=== PATIENT | female | born 1975 | race Caucasian/White ===

== ENCOUNTER → 2016-09-13 | Outpatient (CLI) | payer MEDICAID ==
[~2016-09-13] MED LIST: ACET325T38 PO; ACHD5005 PO; ALBU8.5H2 IH; ASPI-9 PO; CYCL10TA9 PO; DESV50TA PO; DOXY100T2 PO; GEMF600T3; HCT25T PO; HYDR-34 PO; HYDR-3812 PO; HYDR-756 PO; IBUP-15 PO; INHA1INH8 MC; LISI-552 PO; LISI1TAB6; METH4TAB PO; MTP25TSR PO; OMEG500C PO; OMEP20CA12 PO; PNT40TEC PO; PRD20T PO; PRED20TA PO; SCR1T1 PO; SULF-109 PO; TRAM-42 PO; TRAM50TA2 PO; TRM50T PO; [UNRECOGNIZED DRUG - OTHER]
--- OUTSIDE RECORDS SUMMARY | 2016-09-13 13:13 | XMS REPORT | Continuity of Care Document ---
Author Author [facility] Organization [facility] Address Unknown Phone Unavailable Support Name Relationship Address Phone ROLANDANTONIO DO Caregiver [facility] [address] MARTINEZ VALERA Next Of Kin [address] [place] [address] Insurance Providers Payer Name Policy Number Subscriber Name Relationship Enter Insurance Name [id number] Belen Valera 19 Self / Same As Patient Advance Directives Directive Response Recorded Date/Time Advance Directives No 03/25/14 8:47am Resuscitation Status Full Code 03/25/14 8:47am Problems Medical Problems Problem Onset Date Status Epigastric pain Unknown Active Epigastric pain Unknown Active Medications Medication Dose Route Sig Days/Qty Instructions Order Date Discontinued Date Status HCTZ/Lisinopril (Zestoretic) 03/17/09 02/19/10 Discontinued Gemfibrozil (Lopid) 08/21/09 02/19/10 Discontinued Prednisone 3 Tab PO DAILY 11 Qty 3 TABS DAY ONE, TAPER BY 1/2 TAB DAILY TILL GONE 08/21/09 02/19/10 Discontinued Doxycycline Hyclate 1 Each PO TWICE A DAY 20 Qty 08/21/09 02/19/10 Discontinued Doxycycline Hyclate 1 Each PO TWICE A DAY 20 Qty 08/21/09 02/19/10 Discontinued Albuterol 8.5 Gm IH EVERY 4HRS 1 Qty 08/21/09 02/19/10 Discontinued Tramadol HCl 50 - 100 Mg PO FOUR TIMES DAILY 20 Qty PRN PAIN 08/21/09 Discontinued Cyclobenzaprine HCl (Flexeril) 10 Mg PO EVERY 8HRS 05/16/10 Discontinued Desvenlafaxine Succinate 50 Mg PO DAILY 05/16/10 12/01/10 Discontinued Acetaminophen/Hydrocodone Bitart 1 Tab PO EVERY 4HRS 14 Qty 05/16/10 12/01/10 Discontinued Methylprednisolone 0 PO DIRECTED 1 Qty 05/16/10 12/01/10 Discontinued Sulfamethoxazole/Trimethoprim 1 Tab PO TWICE A DAY 14 Days 05/26/10 Discontinued Acetaminophen/Hydrocodone Bitart 1 - 2 Each PO EVERY 6 HOURS PRN 10 Qty 12/01/10 03/25/14 Discontinued Hydrochlorothiazide 25 Mg PO DAILY 03/25/14 Active Sucralfate 1 Gm PO FOUR TIMES DAILY 120 Qty 03/25/14 Active Pantoprazole Sodium 1 Tab PO DAILY 30 Qty 03/25/14 Active Social History Social History Problem Response Recorded Date/Time Alcohol Use Denies Use 03/25/2014 8:47am Recreational Drug Use No 03/25/2014 8:47am Smoking Status Current Everyday Smoker 03/25/2014 8:47am Query Response Start Date Stop Date Smoking Status Current Everyday Smoker Hospital Discharge Instructions No hospital discharge instructions. Plan of Care No plan of care. Functional Status No functional status results. Allergies, Adverse Reactions, Alerts Allergen Type Severity Reaction Status Last Updated No Known Drug Allergies Active 03/17/09 Immunizations No immunization records. Vital Signs Acute Vital Signs Vital Response Date/Time Pulse Rate (adult) 76 bpm (60 - 90) Respiratory Rate 18 bpm (12 - 24) O2 Sat by Pulse Oximetry 96 % (88 - 100) Blood Pressure 138/81 mm Hg Pain Pain Intensity 8 Height (Feet) 5 feet Height (Inches) 6 inches Height (Calculated Centimeters) 167.182199 cm Weight (Pounds) 240 pounds Weight (Calculated Kilograms) 108.553542 kilograms Calculated BMI 38.73 Results Test Source Date Result Interp. Ref. 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 [employer] Alanine Aminotransferase (ALT/SGPT) January 05, 2010 12:16pm 50 U/L N 30- 65 Comments to Lands Resource Manager: PT [employer] Albumin January 05, 2010 12:16pm 3.6 G/DL N 3.4-5.0 Comments to Lands Resource Manager: PT [employer] Alkaline Phosphatase January 05, 2010 12:16pm 107 U/L N 50-136 Comments to Lands Resource Manager: PT [employer] Aspartate Amino Transf (AST/SGOT) January 05, 2010 12:16pm 29 U/L N 15-37 Comments to Lands Resource Manager: PT [employer] BUN/Creatinine Ratio May 26, 2010 12:10am 12 - Band Neutrophils May 26, 2010 12:10am 0 % - Basophils # (Auto) May 26, 2010 12:10am 0.0 10^3/uL N 0.0-0.1 Basophils % (Manual) May 26, 2010 12:10am 0 % - Basophils (%) (Auto) May 26, 2010 12:10am 0 % N 0-10 Blood Urea Nitrogen May 26, 2010 12:10am 12 MG/DL N 7-18 Calcium Level May 26, 2010 12:10am 8.7 MG/DL N 8.5-10.1 Carbon Dioxide Level May 26, 2010 12:10am 25 MMOL/L N 21-32 Chloride Level May 26, 2010 12:10am 100 MMOL/L L 101-110 Cholesterol Level January 05, 2010 12:16pm 171 MG/DL N -200 Comments to Lands Resource Manager: PT [employer] Creatinine May 26, 2010 12:10am 1.0 MG/DL N 0.6-1.3 D-Dimer March 17, 2009 7:30pm 1.06 UG/ML H 0.00-0.49 Eosinophils # (Auto) May 26, 2010 12:10am 0.2 10^3/uL N 0.0-0.3 Eosinophils % (Manual) May 26, 2010 12:10am 1 % - Eosinophils (%) (Auto) May 26, 2010 12:10am 1 % N 0-10 Glucose Level May 26, 2010 12:10am 92 MG/DL N 70-126 HDL Cholesterol January 05, 2010 12:16pm 31 MG/DL L 35-60 Comments to Lands Resource Manager: PT [employer] Hematocrit May 26, 2010 12:10am 44 % N 35-52 Hemoglobin May 26, 2010 12:10am 15.1 G/DL N 11.5-16.0 LDL Cholesterol January 05, 2010 12:16pm 96 MG/DL N 0-129 Comments to Lands Resource Manager: PT [employer] Lymphocytes # (Auto) May 26, 2010 12:10am 5.5 X 10^3 H 1.0-4.0 Lymphocytes % (Manual) May 26, 2010 12:10am 32 % - Lymphocytes (%) (Auto) May 26, 2010 12:10am 39 % N 12-44 Mean Corpuscular Hemoglobin May 26, 2010 12:10am 30 PG N 25-34 Mean Corpuscular Hemoglobin Concent May 26, 2010 12:10am 35 G/DL N 32-36 Mean Corpuscular Volume May 26, 2010 12:10am 86 FL N 80-99 Mean Platelet Volume May 26, 2010 12:10am 11.0 FL H 7.4-10.4 Monocytes # (Auto) May 26, 2010 12:10am 0.9 X 10^3 N 0.0-1.0 Monocytes % (Manual) May 26, 2010 12:10am 8 % - Monocytes (%) (Auto) May 26, 2010 12:10am 7 % N 0-12 Neutrophils # (Auto) May 26, 2010 12:10am 7.4 X 10^3 N 1.8-7.8 Neutrophils % (Manual) May 26, 2010 12:10am 59 % - Neutrophils (%) (Auto) May 26, 2010 12:10am 53 % N 42-75 Platelet Count May 26, 2010 12:10am 263 10^3/uL N 130-400 Potassium Level May 26, 2010 12:10am 3.7 MMOL/L N 3.6-5.0 Prothromb Time International Ratio January 05, 2010 12:16pm 0.9 N 0.8-1.4 INTERPRETIVE DATASUGGESTED THERAPEUTIC RANGE FOR INR'S: VENOUS THROMBOSIS, PULMONARY EMBOLISM, OR PREVENTION OF SYSTEMIC EMBOLISM (EG. IN ATRIAL FIBRILLATION): 2.0 - 3.0 MECHANICAL PROSTHETIC HEART VALVES: 2.5 - 3.5* *NOTE: INR'S UP TO 4.5 MAY BE NECESSARY IN SELECTED GROUPS OF HIGH RISK PATIENTS. [employer] CONSENSUS CONFERENCE ON ANTITHROMBOTIC THERAPY (2000). Prothrombin Time January 05, 2010 12:16pm 12.4 SEC N 12.2-14.7 Comments to Lands Resource Manager: PT [employer] Red Blood Count May 26, 2010 12:10am 5.12 10^6/uL N 4.35-5.85 Red Cell Distribution Width May 26, 2010 12:10am 13.9 % N 10.0-14.5 Sodium Level May 26, 2010 12:10am 134 MMOL/L L 135-145 Thyroid Stimulating Hormone (TSH) February 22, 2010 12:45am 0.88 UIU/ML N 0.34-5.60 Total Bilirubin January 05, 2010 12:16pm 0.2 MG/DL N 0.0-1.0 Comments to Lands Resource Manager: PT [employer] Total Protein January 05, 2010 12:16pm 7.5 G/DL N 6.4-8.2 Comments to Lands Resource Manager: PT [employer] Triglycerides Level January 05, 2010 12:16pm 218 MG/DL H 30.0-150.0 Comments to Lands Resource Manager: PT [employer] Urine Bacteria February 22, 2010 1:40am NEGATIVE - Has specimen been collected/obtained? YSpecimen Description CLEAN CATCH Urine Bilirubin February 22, 2010 1:40am NEGATIVE - Has specimen been collected/obtained? YSpecimen Description CLEAN CATCH Urine Casts February 22, 2010 1:40am NONE - Has specimen been collected/ obtained? YSpecimen Description CLEAN CATCH Urine Clarity February 22, 2010 1:40am CLEAR - Has specimen been collected/obtained? YSpecimen Description CLEAN CATCH Urine Color February 22, 2010 1:40am YELLOW - Has specimen been collected /obtained? YSpecimen Description CLEAN CATCH Urine Crystals February 22, 2010 1:40am NONE - Has specimen been collected/obtained? YSpecimen Description CLEAN CATCH Urine Culture Indicated February 22, 2010 1:40am NO - Has specimen been collected/obtained? YSpecimen Description CLEAN CATCH Urine Glucose (UA) February 22, 2010 1:40am NEGATIVE - Has specimen been collected/obtained? YSpecimen Description CLEAN CATCH Urine Ketones February 22, 2010 1:40am NEGATIVE - Has specimen been collected/obtained? YSpecimen Description CLEAN CATCH Urine Leukocyte Esterase February 22, 2010 1:40am NEGATIVE - Has specimen been collected/obtained? YSpecimen Description CLEAN CATCH Urine Mucus February 22, 2010 1:40am NEGATIVE - Has specimen been collected/obtained? YSpecimen Description CLEAN CATCH Urine Nitrite February 22, 2010 1:40am NEGATIVE - Has specimen been collected/obtained? YSpecimen Description CLEAN CATCH Urine Protein February 22, 2010 1:40am NEGATIVE - Has specimen been collected/obtained? YSpecimen Description CLEAN CATCH Urine RBC February 22, 2010 1:40am NONE /HPF - Has specimen been collected/obtained? YSpecimen Description CLEAN CATCH Urine Specific Dequincy February 22, 2010 1:40am 1.020 - Has specimen been collected/obtained? YSpecimen Description CLEAN CATCH Urine Squamous Epithelial Cells February 22, 2010 1:40am 25-50 H - Has specimen been collected/obtained? YSpecimen Description CLEAN CATCH Urine Urobilinogen February 22, 2010 1:40am NORMAL MG/DL - Has specimen been collected/obtained? YSpecimen Description CLEAN CATCH Urine WBC February 22, 2010 1:40am NONE /HPF - Has specimen been collected/obtained? YSpecimen Description CLEAN CATCH Urine pH February 22, 2010 1:40am 6.5 - Has specimen been collected/ obtained? YSpecimen Description CLEAN CATCH VLDL Cholesterol January 05, 2010 12:16pm 44 MG/DL H 5-40 Comments to Lands Resource Manager: PT [employer] White Blood Count May 26, 2010 12:10am 14.1 10^3/uL H 4.3-11.0 Estimat Glomerular Filtration Rate May 26, 2010 12:10am > 60 - GFR INTERPRETIVE DATA UNITS FOR ESTIMATED GFR (eGFR): mL/min/1.73 M2 REFERENCE RANGE FOR ESTIMATED GFR (eGFR) eGFR NORMAL eGFR >60 MODERATELY DECREASED eGFR 30-59 SEVERLY DECREASED eGFR 15-29 KIDNEY FAILURE <15 (OR DIALYSIS) Blood Morphology Comment May 26, 2010 12:10am NORMAL - Urine RBC (Auto) February 22, 2010 1:40am NEGATIVE - Has specimen been collected/obtained? YSpecimen Description CLEAN CATCH MRSA Screen Nasal January 05, 2010 12:18pm MRSA not isolated Procedures Procedure Status Date Provider(s) Tracing only of electrocardiogram completed 03/25/14 ANTONIO WATKINS DO Encounters Encounter Location Date/Time Registered Emergency Room [facility] 03/25/14 8:24am Recent Diagnosis
--- NOTE | 2016-09-13 13:48 | Diagnostic Imaging Report ---
PA and lateral views of the chest Indication: Cough Findings: The lungs are clear. The heart size is normal. There is no effusion or pneumothorax The mediastinum and rey appear unremarkable. Impression: Unremarkable study. Dictated by: Dictated on workstation # [id number]
== END ==
LOC: RAD 13:09
PROVIDERS: ATTEND Nurse Practitioner Family
DX: J40 Bronchitis, not specified as acute or chronic (principal); E66.9 Obesity, unspecified; R06.02 Shortness of breath; G47.33 Obstructive sleep apnea (adult) (pediatric); R00.2 Palpitations; Z72.0 Tobacco use
CPT/HCPCS: 71020

== ENCOUNTER 2017-07-02 09:40 | Emergency (ER) | payer MEDICAID ==
[~2017-07-02] VITALS: Ht 167.6 cm; Wt 72.6 kg
[2017-07-02] MEDS ORDERED: TETANUS,DIPTH,PERTUSS P/F (BOOSTRIX) 0.5 ML VIAL IM STA (09:53)
[2017-07-02] MEDS ORDERED: IBUPROFEN 800 MG (MOTRIN) TAB PO STA (09:53)
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
--- NOTE | 2017-07-02 10:19 | Diagnostic Imaging Report ---
INDICATION: Tripped and fell, swelling and pain. EXAMINATION: Right forearm 07/02/2017. FINDINGS: 2 views of the forearm. There is no joint effusion. Tiny density along the intra-aspect of the elbow is likely a spur with tiny fracture fragment difficult to exclude but felt to be less likely given the lack of effusion. The remaining forearm is unremarkable. At the wrist old fractures are seen. IMPRESSION: 1. Tiny density in the intra-aspect of the elbow most likely a chronic finding less likely a tiny avulsion fracture fragment as described above. The remaining examination is unremarkable for acute abnormality. Dictated by: Dictated on workstation # [id number]
[2017-07-02 10:45] VITALS: BP 154/107
== END 2017-07-02 10:45 | disposition home or self-care (01) ==
LOC: EDUNIT# 09:40 → ER 09:42
DX: S50.12XA Contusion of left forearm, initial encounter (principal); I10 Essential (primary) hypertension; K21.9 Gastro-esophageal reflux disease without esophagitis; F17.210 Nicotine dependence, cigarettes, uncomplicated; Z87.11 Personal history of peptic ulcer disease; Z23 Encounter for immunization; Z85.840 Personal history of malignant neoplasm of eye; W10.1XXA Fall (on)(from) sidewalk curb, initial encounter
CPT/HCPCS: 73090; 90715; 99284

== ENCOUNTER → 2018-01-03 | Outpatient (CLI) | payer MEDICAID ==
[~2018-01-03] MED LIST changes: +ACET-168 PO; +ALPR0.254 PO; +ALPR2TAB2 PO; +ASPI-808 PO; +ASPI-999 PO; -HYDR-3812 PO; -IBUP-15 PO; +IBUP-16 PO; +IBUP-30 PO; +LOSA100T28 PO; +METO-395 PO; +VALS160T28 PO; +VALS80TA PO
[2018-01-03 09:01] LABS: BASOPHILS % (AUTO) 0 % (0-10); EOSINOPHILS # (AUTO) 0.2 10^3/uL (0.0-0.3); EOSINOPHILS % (AUTO) 2 % (0-10); HEMATOCRIT 42 % (35-52); HEMOGLOBIN 14.1 G/DL (11.5-16.0); LYMPHOCYTES # (AUTO) 4.3 X 10^3 (1.0-4.0); LYMPHOCYTES % (AUTO) 35 % (12-44); MEAN CORPUSCULAR HEMOGLOBIN 29 PG (25-34); MEAN CORPUSCULAR HGB CONC 34 G/DL (32-36); MEAN CORPUSCULAR VOLUME 85 FL (80-99); MEAN PLATELET VOLUME 11.1 FL (7.4-10.4); MONOCYTES # (AUTO) 0.9 X 10^3 (0.0-1.0); MONOCYTES % (AUTO) 8 % (0-12); NEUTROPHILS # (AUTO) 6.9 X 10^3 (1.8-7.8); NEUTROPHILS % (AUTO) 56 % (42-75); PLATELET COUNT 261 10^3/uL (130-400); RED BLOOD COUNT 4.93 10^6/uL (4.35-5.85); RED CELL DISTRIBUTION WIDTH 14.8 % (10.0-14.5); WHITE BLOOD COUNT 12.4 10^3/uL (4.3-11.0)
[2018-01-03 09:19] LABS: ALANINE AMINOTRANSFERASE 22 U/L (0-55); ALKALINE PHOSPHATASE 101 U/L (40-136); BILIRUBIN,TOTAL 0.3 MG/DL (0.1-1.0); BUN/CREATININE RATIO 22; CALCIUM 9.1 MG/DL (8.5-10.1); CARBON DIOXIDE 24 MMOL/L (21-32); CHLORIDE 107 MMOL/L (98-107); CREATININE SERUM 0.77 MG/DL (0.60-1.30); GFR ESTIMATED > 60; GLUCOSE 93 MG/DL (70-105); MAGNESIUM 2.4 MG/DL (1.8-2.4); POTASSIUM 3.6 MMOL/L (3.6-5.0); SODIUM 141 MMOL/L (135-145); TOTAL PROTEIN 7.3 GM/DL (6.4-8.2)
[2018-01-03 09:31] LABS: ERYTHROCYTE SEDIMENTATION RATE 5 MM/HR (0-20)
== END ==
LOC: LAB 08:34
PROVIDERS: ATTEND Internal Medicine Cardiovascular Disease
DX: I47.2 Ventricular tachycardia (principal); I42.0 Dilated cardiomyopathy
CPT/HCPCS: 36415; 80053; 83735; 84443; 85025; 85652

== ENCOUNTER 2018-01-15 17:48 | Emergency (ER) | payer MEDICAID ==
[~2018-01-15] VITALS: Ht 167.6 cm; Wt 100.7 kg
[2018-01-15] MEDS ORDERED: NITROGLYCERIN 0.4 MG SL TABS BTL 25'S SL PRN (18:15)
[2018-01-15] MEDS ORDERED: ASPIRIN 81 MG CHEW (CHILDREN'S ASA) PO ONE (18:15)
--- NOTE | 2018-01-15 18:19 | ED Chest Pain ---
General Chief Complaint: Cardiac/General Problems Stated Complaint: RAPID HR/SHAKY Source: patient Exam Limitations: no limitations History of Present Illness Date Seen by Provider: Jan 15, 2018 Time Seen by Provider: 18:02 Initial Comments The patient presents to the ER by private conveyance with a chief complaint of racing heart, palpitations and pain under her left armpit. She does not have a known coronary artery disease and she has had a heart catheter in the past showing nonobstructive disease according to the patient and Dr. Khan. She is wearing a defibrillator with a plan to go later in the month to an underwriting support manager in [place] for further evaluation and management. She has had an ultrasound of her heart. She smokes about a half pack per day and is reduced significantly from where she used to smoke. Her symptoms started about 30 minutes ago and the pain is described as very sharp and has not gotten any better. It is worse with movement. When she lays down at night she has a little more difficulty breathing and she gets some swelling towards the evening and her hands and feet that goes away by morning. She is on metoprolol, losartan and aspirin and has been taking these medications appropriately. She has not felt that her defibrillator checked. She has no history of hypothyroidism or hyperlipidemia. She does not have diabetes. Allergies and Home Medications Allergies Coded Allergies: No Known Drug Allergies (Unverified , 01/15/18) Home Medications Acetaminophen 500 Mg Tablet, 1,000 MG PO Q6H PRN for PAIN-MILD, (Reported) Alprazolam 0.25 Mg Tablet, 0.25 MG PO TID PRN for ANXIETY, (Reported) Aspirin 81 Mg Tab.chew, 81 MG PO DAILY Prescribed by: NGOZI ABERNATHY on 12/15/17926 Metoprolol Succinate 100 Mg Tab.er.24h, 100 MG PO DAILY Prescribed by: NGOZI ABERNATHY on 12/15/17926 Omeprazole 20 Mg Capsule.dr, 20 MG PO DAILY PRN for HEARTBURN, (Reported) Valsartan 80 Mg Tablet, 80 MG PO HS Prescribed by: NGOZI ABERNATHY on 12/15/17926 Patient Home Medication List Home Medication List Reviewed: Yes Review of Systems Constitutional: No chills, No diaphoresis; dizziness ( near syncope); No fever EENTM: No Blurred Vision, No Double Vision Respiratory: Denies Cough, Denies Shortness of Air Cardiovascular: Chest Pain, Edema, Irregular Heart Rate, Lightheadedness, Palpitations, Syncope (near) Gastrointestinal: Denies Constipated, Denies Diarrhea; Nausea Genitourinary: Denies Burning, Denies Discharge Musculoskeletal: No back pain, No gout, No joint pain Skin: No pruritus, No rash Psychiatric/Neurological: Denies Headache, Denies Numbness Past Bxncivv-Nqiyaw-Rcroys Hx Patient Social History Alcohol Use: Denies Use Recreational Drug Use: No Smoking Status: Current Everyday Smoker Type Used: Cigarettes Recent Foreign Travel: No Contact w/Someone Who Travel: No Recent Hopitalizations: No Seasonal Allergies Seasonal Allergies: No Past Medical History Surgeries: Yes (Partial hysterectomy, right eye removal) Cardiac, Eye Surgery, Gallbladder, Hysterectomy Respiratory: Yes Sleep Apnea Currently Using CPAP: Yes Currently Using BIPAP: No Cardiac: Yes Hypertension Neurological: Yes Reproductive Disorders: 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 Genitourinary: Yes (Bladder sling surgery) Gastrointestinal: Yes Gastroesophageal Reflux, Hiatal Hernia Musculoskeletal: Yes Fractures Endocrine: No 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) Loss of Vision: Right Hearing Impairment: Denies 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) Cervical Psychosocial: No Integumentary: No Blood Disorders: No Family Medical History Cervical cancer 19 MOTHER Hypertension 19 FATHER 19 MOTHER Myocardial infarction 19 FATHER No Pertinent Family Hx Physical Exam Vital Signs Vital Signs - First Documented 01/15/18 01/15/18 18:15 18:32 Pulse 77 Resp 14 B/P (MAP) 158/77 (104) Pulse Ox 95 O2 Delivery Room Air Capillary Refill : General Appearance: WD/WN, Anxious HEENT: Normal ENT Inspection, Pharynx Normal, Other (artificial right eye) Neck: Full Range of Motion, Normal Inspection, Non Tender, Supple Respiratory: Chest Non Tender, Lungs Clear, Normal Breath Sounds, No Accessory Muscle Use, No Respiratory Distress Cardiovascular: Regular Rate, Rhythm, No Gallop, No JVD, No Murmur, Normal Peripheral Pulses, Other (trace bilateral pedal edema) Gastrointestinal: Normal Bowel Sounds, Non Tender, Soft Extremity: Normal Capillary Refill, Normal Inspection, No Pedal Edema Neurologic/Psychiatric: Alert, Oriented x3 Skin: Normal Color, Warm/Dry Progress/Results/Core Measures Results/Orders Lab Results Laboratory Tests Test 01/15/18 18:15 Range/Units White Blood Count 13.0 H 4.3-11.0 10^3/uL Red Blood Count 4.97 4.35-5.85 10^6/uL Hemoglobin 14.3 11.5-16.0 G/DL Hematocrit 43 35-52 % Mean Corpuscular Volume 86 80-99 FL Mean Corpuscular Hemoglobin 29 25-34 PG Mean Corpuscular Hemoglobin Concent 34 32-36 G/DL Red Cell Distribution Width 15.5 H 10.0-14.5 % Platelet Count 241 130-400 10^3/uL Mean Platelet Volume 11.2 H 7.4-10.4 FL Neutrophils (%) (Auto) 73 42-75 % Lymphocytes (%) (Auto) 21 12-44 % Monocytes (%) (Auto) 5 0-12 % Eosinophils (%) (Auto) 1 0-10 % Basophils (%) (Auto) 0 0-10 % Neutrophils # (Auto) 9.4 H 1.8-7.8 X 10^3 Lymphocytes # (Auto) 2.8 1.0-4.0 X 10^3 Monocytes # (Auto) 0.7 0.0-1.0 X 10^3 Eosinophils # (Auto) 0.1 0.0-0.3 10^3/uL Basophils # (Auto) 0.0 0.0-0.1 10^3/uL Prothrombin Time 13.0 12.2-14.7 SEC INR Comment 1.0 0.8-1.4 Activated Partial Thromboplast Time 27 24-35 SEC Sodium Level 140 135-145 MMOL/L Potassium Level 3.8 3.6-5.0 MMOL/L Chloride Level 108 H 98-107 MMOL/L Carbon Dioxide Level 20 L 21-32 MMOL/L Anion Gap 12 5-14 MMOL/L Blood Urea Nitrogen 10 7-18 MG/DL Creatinine 0.80 0.60-1.30 MG/DL Estimat Glomerular Filtration Rate > 60 BUN/Creatinine Ratio 13 Glucose Level 92 70-105 MG/DL Calcium Level 9.3 8.5-10.1 MG/DL Magnesium Level 2.1 1.8-2.4 MG/DL Total Bilirubin 0.3 0.1-1.0 MG/DL Aspartate Amino Transf (AST/SGOT) 16 5-34 U/L Alanine Aminotransferase (ALT/SGPT) 17 0-55 U/L Alkaline Phosphatase 99 40-136 U/L Myoglobin 45.8 10.0-92.0 NG/ML Troponin I < 0.30 <0.30 NG/ML B-Type Natriuretic Peptide 40.6 <100.0 PG/ML Total Protein 7.2 6.4-8.2 GM/DL Albumin 4.1 3.2-4.5 GM/DL My Orders Orders - [facility] Cbc With Automated Diff (01/15/18 18:11) Magnesium (01/15/18 18:11) Chest 1 View, Ap/Pa Only (01/15/18 18:11) Ekg Tracing (01/15/18 18:11) Cardiac Profile 1 (01/15/18 18:11) Comprehensive Metabolic Panel (01/15/18 18:11) Myoglobin Serum (01/15/18 18:11) Protime With Inr (01/15/18 18:11) Partial Thromboplastin Time (01/15/18 18:11) O2 (01/15/18 18:11) Monitor-Rhythm Ecg Trace Only (01/15/18 18:11) Lipid Panel (01/16/18 06:00) Aspirin Chewable Tablet (Baby Aspirin Ch (01/15/18 18:15) Nitroglycerin 0.4 Mg Btl 25's (Nitrostat (01/15/18 18:15) Saline Lock/Iv-Start (01/15/18 18:11) BNP (01/15/18 18:11) Ondansetron Injection (Zofran Injectio (01/15/18 18:30) Ondansetron Injection (Zofran Injectio (01/15/18 18:20) Medications Given in ED Current Medications Medications Dose Ordered Sig/Thelma Route Start Time Stop Time Status Last Admin Dose Admin Aspirin 324 mg ONCE ONCE PO 18 18:15 18 18:16 DC 18 18:22 324 MG Nitroglycerin 0.4 mg UD PRN SL 18 18:15 18 18:22 0.4 MG Ondansetron HCl 4 mg STK-MED ONCE .ROUTE 18 18:20 6/17/18 18:21 DC 01/15/18 18:22 4 MG Vital Signs/I&O 01/15/18 01/15/18 18:15 18:32 Pulse 77 Resp 14 B/P (MAP) 158/77 (104) Pulse Ox 95 95 O2 Delivery Room Air Room Air Progress Progress Note : Time: 18:16 Progress Note Dilated cardiomyopathy w/o any overt heart failure. Echocardiogram of November 2017 showed LVEF 30-35%. Concentric LVH. LA dilated. Mod MR and TR. PASP 35- 40mmHg Card cath of 05/11/16 did not show any significant CAD, LVEF 50%, LVEDP 11, PWP 13, no significant MR ED ACS Score: 11 pts: If the patient also has: (1) EKG without new ischemic changes and (2) negative initial and 2-hour troponins, then this patient is safe for discharge to early outpatient follow-up investigation (or proceed to earlier inpatient testing). If EKG with ischemic changes or positive troponin, they are not low risk and require normal risk stratification. Low risk for ACS if ruled out by Delta troponin however there are still a moderate to high risk that she is having electrical issues that may need to be addressed today so we' ll talk to the jig and fixture repairer on-call. Initial ECG Impression Date: Jan 15, 2018 Initial ECG Impression Time: 18:04 Initial ECG Rate: 64 Initial ECG Rhythm: Normal Sinus Initial ECG Intervals: QT (504) Initial ECG Impression: Nonspecific Changes (incomplete left bundle branch block) Diagnostic Imaging Diagonstic Imaging: Xray Plain Films/CT/US/NM/MRI: chest (1v) Comments [place] NAME: BELEN VALERA [facility] REC#: [id number] PT STATUS: REG ER : 1975 PHYSICIAN: SPRING GARCÍA MD ADMIT DATE: 01/15/18/ER Draft Date of Exam:01/15/18 CHEST 1 VIEW, AP/PA ONLY INDICATION: Dyspnea and dizziness. EXAMINATION: Portable upright AP view of the chest was obtained at 1820 hours. FINDINGS: Since 12/14/2017, there has been placement of external defibrillator device. Pulmonary vascularity is at the upper limits of normal. Overall heart size is within normal limits without evidence of pneumothorax or consolidation. IMPRESSION: Borderline pulmonary venous congestion without other evidence of overt edema or other acute abnormality in the chest. Dictated on workstation # [id number] Dict: 01/15/18 1828 Trans: 01/15/18 1831 [facility] [id number] Interpreted by: RED JADE MD Electronically signed by: Reviewed: Reviewed by Me Departure Impression Primary Impression: Cardiomyopathy Qualified Codes: I42.0 - Dilated cardiomyopathy Additional Impression: Chest pain Qualified Codes: R07.9 - Chest pain, unspecified Disposition: HOME, SELF-CARE Condition: Improved Departure-Patient Inst. Decision time for Depature: 19:05 Referrals: CAMILO FLYNN DO (PCP/Family) Primary Care Physician Patient Instructions: Chest Pain (DC) Add. Discharge Instructions: Your chest pain does not seem to be related to a heart attack however could be related to your dysrhythmias so it is important that you follow-up with Dr. Khan by calling his clinic in requesting appointment for tomorrow. If you're having worsening, new or other worrisome symptoms you should return to the ER. All discharge instructions reviewed with patient and/or family. Voiced understanding. Work/School Note: Work Release Form Date Seen in the Emergency Department: Jan 15, 2018 Return to Work: Jan 16, 2018 Restrictions: No Restrictions Copy Copies To 1: CAMILO FLYNN DO; JONATHAN KHAN MD FACP FAC CCDS SPRING GARCÍA Jan 15, 2018 18:19
[2018-01-15] MEDS ORDERED: ONDANSETRON 4 MG/2 ML (SDV) Z0FRAN ONE (18:20)
[2018-01-15 18:24] LABS: BASOPHILS % (AUTO) 0 % (0-10); EOSINOPHILS # (AUTO) 0.1 10^3/uL (0.0-0.3); EOSINOPHILS % (AUTO) 1 % (0-10); HEMATOCRIT 43 % (35-52); HEMOGLOBIN 14.3 G/DL (11.5-16.0); LYMPHOCYTES # (AUTO) 2.8 X 10^3 (1.0-4.0); LYMPHOCYTES % (AUTO) 21 % (12-44); MEAN CORPUSCULAR HEMOGLOBIN 29 PG (25-34); MEAN CORPUSCULAR HGB CONC 34 G/DL (32-36); MEAN CORPUSCULAR VOLUME 86 FL (80-99); MEAN PLATELET VOLUME 11.2 FL (7.4-10.4); MONOCYTES # (AUTO) 0.7 X 10^3 (0.0-1.0); MONOCYTES % (AUTO) 5 % (0-12); NEUTROPHILS # (AUTO) 9.4 X 10^3 (1.8-7.8); NEUTROPHILS % (AUTO) 73 % (42-75); PLATELET COUNT 241 10^3/uL (130-400); RED BLOOD COUNT 4.97 10^6/uL (4.35-5.85); RED CELL DISTRIBUTION WIDTH 15.5 % (10.0-14.5)
[2018-01-15] MEDS ORDERED: ONDANSETRON 4 MG/2 ML (SDV) Z0FRAN IVP ONE (18:30)
--- NOTE | 2018-01-15 18:32 | Diagnostic Imaging Report ---
INDICATION: Dyspnea and dizziness. EXAMINATION: Portable upright AP view of the chest was obtained at 1820 hours. FINDINGS: Since 12/14/2017, there has been placement of external defibrillator device. Pulmonary vascularity is at the upper limits of normal. Overall heart size is within normal limits without evidence of pneumothorax or consolidation. IMPRESSION: Borderline pulmonary venous congestion without other evidence of overt edema or other acute abnormality in the chest. Dictated by: Dictated on workstation # [id number]
[2018-01-15 18:41] LABS: ALANINE AMINOTRANSFERASE 17 U/L (0-55); ALBUMIN 4.1 GM/DL (3.2-4.5); ALKALINE PHOSPHATASE 99 U/L (40-136); BILIRUBIN,TOTAL 0.3 MG/DL (0.1-1.0); BUN/CREATININE RATIO 13; CALCIUM 9.3 MG/DL (8.5-10.1); CARBON DIOXIDE 20 MMOL/L (21-32); CHLORIDE 108 MMOL/L (98-107); GFR ESTIMATED > 60; GLUCOSE 92 MG/DL (70-105); MAGNESIUM 2.1 MG/DL (1.8-2.4); POTASSIUM 3.8 MMOL/L (3.6-5.0); SODIUM 140 MMOL/L (135-145); TOTAL PROTEIN 7.2 GM/DL (6.4-8.2)
[2018-01-15 18:48] LABS: MYOGLOBIN SERUM 45.8 NG/ML (10.0-92.0)
[2018-01-15 19:08] VITALS: BP 130/73
== END 2018-01-15 19:18 | disposition home or self-care (01) ==
LOC: EDUNIT# 17:48 → ER 17:49
DX: I42.0 Dilated cardiomyopathy (principal); R07.9 Chest pain, unspecified; I10 Essential (primary) hypertension; K21.9 Gastro-esophageal reflux disease without esophagitis; F17.210 Nicotine dependence, cigarettes, uncomplicated; Z87.81 Personal history of (healed) traumatic fracture; Z85.41 Personal history of malignant neoplasm of cervix uteri; Z85.840 Personal history of malignant neoplasm of eye; Z90.710 Acquired absence of both cervix and uterus; Z79.82 Long term (current) use of aspirin
CPT/HCPCS: 36415; 71045; 80053; 83735; 83874; 83880; 84484; 85025; 85610; 85730; 93005; 93041; 96374

== ENCOUNTER 2018-02-15 23:35 | Emergency (ER) | payer MEDICAID ==
[~2018-02-15] VITALS: Ht 167.6 cm; Wt 100.9 kg
[~2018-02-15 23:35] MED LIST changes: -VALS160T28 PO; +VALS160T29 PO
--- NOTE | 2018-02-15 23:53 | ED Upper Extremity ---
General Chief Complaint: Upper Extremity Stated Complaint: KNOT ON RT WRIST Nursing Triage Note: RIGHT WRIST PAIN, NO INJURY Nursing Sepsis Screen: No Definite Risk Source: patient, family Exam Limitations: no limitations History of Present Illness Date Seen by Provider: Feb 15, 2018 Time Seen by Provider: 23:42 Initial Comments Patient presents to the ER by private conveyance with her family and a chief complaint for the past 2 or 3 days she's had progressively worsening swelling, not on her right hand anterior wrist with pain in her wrist that shoots up to her right elbow. She says she did not have any trauma that she is aware of she is not had a fracture, fall, bump. The pain is improved some with Tylenol and ice but is continuing to get worse and she dropped her coffee pot this morning trying to lift with it. 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 She says this happened in May 2017 and she went to Dr. Flynn and he put her on Naprosyn and it went away in a few days. And she has not taken any Naprosyn yet but she did take ibuprofen at noon today. The patient is not having any constitutional symptoms of fever chills night sweats weight loss or weight gain. Allergies and Home Medications Allergies Coded Allergies: No Known Drug Allergies (Unverified , 01/15/18) Home Medications Acetaminophen 500 Mg Tablet, 1,000 MG PO Q6H PRN for PAIN-MILD, (Reported) Alprazolam 0.25 Mg Tablet, 0.25 MG PO TID PRN for ANXIETY, (Reported) Aspirin 81 Mg Tab.chew, 81 MG PO DAILY Prescribed by: NGOZI ABERNATHY on 12/15/17926 Metoprolol Succinate 100 Mg Tab.er.24h, 100 MG PO DAILY Prescribed by: NGOZI ABERNATHY on 12/15/17926 Omeprazole 20 Mg Capsule.dr, 20 MG PO DAILY PRN for HEARTBURN, (Reported) Valsartan 80 Mg Tablet, 80 MG PO HS Prescribed by: NGOZI ABERNATHY on 12/15/17926 Patient Home Medication List Home Medication List Reviewed: Yes Constitutional: No chills, No diaphoresis, No fever, No weight gain, No weight loss EENTM: No eye pain, No tearing Respiratory: No hemoptysis, No phlegm, No short of breath Cardiovascular: No chest pain, No edema Gastrointestinal: No abdominal pain, No constipation, No diarrhea Genitourinary: No discharge, No dysuria Musculoskeletal: see HPI; No back pain, No gout; joint pain Past Kdschxs-Pbhhgt-Cpviey Hx Patient Social History Alcohol Use: Denies Use Recreational Drug Use: No Smoking Status: Current Everyday Smoker Type Used: Cigarettes 2nd Hand Smoke Exposure: Yes Recent Foreign Travel: No Contact w/Someone Who Travel: No Recent Infectious Disease Expo: No Recent Hopitalizations: No Immunizations Up To Date Tetanus Booster (TDap): Unknown Seasonal Allergies Seasonal Allergies: No Past Medical History Surgeries: Yes (Partial hysterectomy, right eye removal) Cardiac, Eye Surgery, Gallbladder, Hysterectomy Respiratory: Yes Sleep Apnea Currently Using CPAP: Yes Currently Using BIPAP: No Cardiac: Yes Hypertension Neurological: Yes : No Reproductive Disorders: 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) 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 Genitourinary: Yes (Bladder sling surgery) Gastrointestinal: Yes Gastroesophageal Reflux, Hiatal Hernia Musculoskeletal: Yes Fractures Endocrine: No 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 8.0oz. [id number]; 35.9 BMI Method:Stated General Appearance: WD/WN, no apparent distress HEENT: PERRL/EOMI, normal ENT inspection, pharynx normal Neck: non-tender, full range of motion, normal inspection Cardiovascular: normal peripheral pulses, regular rate, rhythm Respiratory: no respiratory distress, no accessory muscle use Wrist: Yes normal ROM (bilateral); No mass, No nodules; Yes pain, Yes soft tissue tenderness, Yes swelling (scant right wrist) Hand: normal inspection, non-tender, no evidence of injury, normal ROM, Bilateral Neurologic/Tendon: normal sensation, normal motor functions, normal tendon functions, responds to pain, no evidence tendon injury Neurologic/Psychiatric: alert, oriented x 3 Skin: normal color, warm/dry Progress/Results/Core Measures Results/Orders Vital Signs/I&O 02/15/18 23:35 Temp 97.9 Pulse 86 Resp 18 B/P (MAP) 183/89 (120) Pulse Ox 98 O2 Delivery Room Air Blood Pressure Mean: 120 Progress Progress Note : Time: 23:55 Progress Note Osteoarthritis versus much less likely pseudogout or other nontraumatic subacute cause for this same wrist monoarticular pain. There is no systemic symptoms so Lyme's disease or other infectious causes are much less likely. She' s also had this same process before. We will refer her on to a hand surgeon at [address] [place] [address] orthopedics for reevaluation in the next week and put her back on scheduled NSAIDs full dose. Departure Impression Primary Impression: Wrist pain, right Disposition: 01 HOME, SELF-CARE Condition: Stable Departure-Patient Inst. Decision time for Depature: 23:57 Referrals: CAMILO FLYNN DO (PCP/Family) Primary Care Physician LION KAPLAN MD Patient Instructions: Common Wrist Injuries (DC) Add. Discharge Instructions: Tomorrow morning call for [facility] orthopedics and request an appointment with the hand surgeon. Follow-up with your primary care provider as necessary. 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 You can also use Tylenol 1000 mg every 8 hours as needed for breakthrough pain. Apply ice for 20 minutes every 4 hours for the first 3 days. Keep the hand elevated and use the splint as necessary. Return to your primary care provider sooner if you begin to experience fevers, chills, nausea, vomiting or unexpected weight loss. All discharge instructions reviewed with patient and/or family. Voiced understanding. Scripts Naproxen (Naprosyn) 500 Mg Tablet 500 MG PO BID, #30 TAB 0 Refills Prov: SPRING GARCÍA 02/15/18 Work/School Note: Work Release Form Date Seen in the Emergency Department: Feb 16, 2018 Return to Work: Feb 17, 2018 Restrictions: No Restrictions Copy Copies To 1: CAMILO FLYNN DO; LION KAPLAN MD, TITUS J Feb 15, 2018 23:52
[2018-02-15] MEDS ORDERED: NAPR-1071 PO (23:59)
[2018-02-16] MEDS ORDERED: NAPROXEN 250 MG (NAPROSYN) TABLET PO ONE
[2018-02-16 00:07] VITALS: BP 183/89
== END 2018-02-16 00:06 | disposition home or self-care (01) ==
LOC: EDUNIT# 23:35 → ER 23:37
DX: M25.531 Pain in right wrist (principal); G47.30 Sleep apnea, unspecified; K21.9 Gastro-esophageal reflux disease without esophagitis; I10 Essential (primary) hypertension; F17.210 Nicotine dependence, cigarettes, uncomplicated; Z87.19 Personal history of other diseases of the digestive system; Z85.71 Personal history of Hodgkin lymphoma; Z82.49 Family history of ischemic heart disease and other diseases of the circulatory system; Z85.41 Personal history of malignant neoplasm of cervix uteri; Z96.0 Presence of urogenital implants; Z90.711 Acquired absence of uterus with remaining cervical stump; Z79.82 Long term (current) use of aspirin; Z80.49 Family history of malignant neoplasm of other genital organs; X58.XXXA Exposure to other specified factors, initial encounter
CPT/HCPCS: 99283

== ENCOUNTER → 2018-02-28 | Outpatient (CLI) | payer MEDICAID ==
[~2018-02-28] MED LIST changes: +NAPR-1071 PO
== END ==
LOC: CARD 11:57
PROVIDERS: ATTEND Nurse Practitioner Family
DX: I42.0 Dilated cardiomyopathy (principal)
CPT/HCPCS: 93306

== ENCOUNTER → 2018-03-04 | Outpatient (CLI) | payer MEDICAID ==
[2018-03-04 15:40] LABS: HEMOGLOBIN 14.1 G/DL (11.5-16.0); MEAN PLATELET VOLUME 10.7 FL (7.4-10.4); RED BLOOD COUNT 4.87 10^6/uL (4.35-5.85); RED CELL DISTRIBUTION WIDTH 14.5 % (10.0-14.5); WHITE BLOOD COUNT 12.4 10^3/uL (4.3-11.0)
[2018-03-04 16:08] LABS: BUN/CREATININE RATIO 9; CARBON DIOXIDE 25 MMOL/L (21-32); CHLORIDE 108 MMOL/L (98-107); CREATININE SERUM 0.76 MG/DL (0.60-1.30); GFR ESTIMATED > 60; GLUCOSE 88 MG/DL (70-105); MAGNESIUM 2.1 MG/DL (1.8-2.4); SODIUM 139 MMOL/L (135-145)
== END ==
LOC: LAB 15:24
PROVIDERS: ATTEND Internal Medicine Cardiovascular Disease
DX: I47.1 Supraventricular tachycardia (principal); R00.2 Palpitations
CPT/HCPCS: 36415; 80048; 83735; 85027

== ENCOUNTER 2018-06-20 16:22 | Emergency (ER) | payer MEDICAID ==
[~2018-06-20] VITALS: Ht 167.6 cm; Wt 99.8 kg
[~2018-06-20 16:22] MED LIST changes: +HYDR-4227 PO; -HYDR-756 PO; -LOSA100T28 PO; +LOSA100T8 PO
[2018-06-20] MEDS: diphenhydrAMINE 25 MG TAB (BENADRYL) PO ONE (16:41)
[2018-06-20] MEDS: KETOROLAC 60 MG/2 ML VIAL IM ONE (16:42)
[2018-06-20] MEDS: PROCHLORPERAZINE 10 MG/2ML INJ (COMPAZINE) IM ONE (16:45)
--- NOTE | 2018-06-20 17:09 | ED Headache ---
General Chief Complaint: Neurological Problems Stated Complaint: HEADACHE X2 DAYS, BLOOD PRESSURE 150/98, COUGH Nursing Triage Note: C/O HEADACHE SINCE YESTERDAY. Nursing Sepsis Screen: No Definite Risk Source: patient Exam Limitations: no limitations History of Present Illness Date Seen by Provider: Jun 20, 2018 Time Seen by Provider: 16:30 Initial Comments Patient is a 42-year-old female who presents to emergency room with complaints of migraine for the past 2 days. She reports that she has had cancer to her right eye. She denies nausea and vomiting. Reports high her blood pressure readings at home. She does take her prescription in blood pressure medication. Timing/Duration: other Associated Symptoms: denies symptoms Allergies and Home Medications Allergies Coded Allergies: No Known Drug Allergies (Unverified , 01/15/18) Home Medications Acetaminophen 500 Mg Tablet, 1,000 MG PO Q6H PRN for PAIN-MILD, (Reported) Alprazolam 0.25 Mg Tablet, 0.25 MG PO TID PRN for ANXIETY, (Reported) Aspirin 81 Mg Tab.chew, 81 MG PO DAILY Prescribed by: NGOZI ABERNATHY on 12/15/17926 Metoprolol Succinate 100 Mg Tab.er.24h, 100 MG PO DAILY Prescribed by: NGOZI ABERNATHY on 12/15/17926 Naproxen 500 Mg Tablet, 500 MG PO BID Prescribed by: SPRING GARCÍA on 02/15/18 8499 Omeprazole 20 Mg Capsule.dr, 20 MG PO DAILY PRN for HEARTBURN, (Reported) Valsartan 80 Mg Tablet, 80 MG PO HS Prescribed by: NGOZI ABERNATHY on 12/15/17926 Patient Home Medication List Home Medication List Reviewed: Yes Review of Systems Review of Systems Constitutional: see HPI; No chills, No fever Psychiatric/Neurological: See HPI, Headache All Other Systems Reviewed Negative Unless Noted: Yes Past Ozjggbl-Jwmufv-Myglsm Hx Past Med/Social Hx: Reviewed Nursing Past Med/Soc Hx Patient Social History Alcohol Use: Denies Use Recreational Drug Use: No Type Used: Cigarettes 2nd Hand Smoke Exposure: Yes Recent Foreign Travel: No Contact w/Someone Who Travel: No Recent Infectious Disease Expo: No Recent Hopitalizations: No Immunizations Up To Date Tetanus Booster (TDap): Unknown Seasonal Allergies Seasonal Allergies: No Past Medical History Surgeries: Yes (Partial hysterectomy, right eye removal) Cardiac, Eye Surgery, Gallbladder, Hysterectomy Respiratory: Yes Sleep Apnea Currently Using CPAP: Yes Currently Using BIPAP: No Cardiac: Yes Hypertension Neurological: Yes 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 Genitourinary: Yes (Bladder sling surgery) Gastrointestinal: Yes Gastroesophageal Reflux, Hiatal Hernia Musculoskeletal: Yes Fractures Endocrine: No 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 8.0oz. 99.546147fy; 35.9 BMI Method:Stated General Appearance: WD/WN, no apparent distress Cardiovascular: normal peripheral pulses, regular rate, rhythm, no edema, no gallop, no JVD, no murmur Respiratory: chest non-tender, lungs clear, normal breath sounds, no respiratory distress, no accessory muscle use Psychiatric: alert, oriented x 3 Crainal Nerves: normal hearing, normal speech Skin: normal color, warm/dry Progress/Results/Core Measures Results/Orders My Orders Orders - PATRIZIA LEHMAN Ketorolac Injection (Toradol Injection) (06/20/18 16:45) Prochlorperazine Injection (Compazine In (06/20/18 16:45) Diphenhydramine Tablet (Benadryl Tablet) (06/20/18 16:45) Ct Head Wo (06/20/18 16:32) Medications Given in ED Vital Signs/I&O 06/20/18 06/20/18 16:26 18:10 Temp 98.4 Pulse 70 71 Resp 18 18 B/P (MAP) 136/78 (97) 135/80 (98) Pulse Ox 99 99 O2 Delivery Room Air Blood Pressure Mean: 97 Diagnostic Imaging Diagonstic Imaging: CT Comments NAME: BELEN VALERA [facility] REC#: [id number] PT STATUS: DEP ER : 1975 PHYSICIAN: PATRIZIA LEHMAN ADMIT DATE: 06/20/18/ER Signed Date of Exam: 06/20/18 CT HEAD WO PROCEDURE: CT head without contrast. TECHNIQUE: Multiple contiguous axial images were obtained through the brain without the use of intravenous contrast. INDICATION: Headache. COMPARISON: None. FINDINGS: Ventricles are normal in size, shape, and position. There is no midline shift or mass effect. There is no hemorrhage or evidence of acute ischemia. There is no extra-axial fluid collection. The paranasal sinuses and mastoids are normal. The bony calvarium is intact. IMPRESSION: Negative CT head. Dictated by: Dictated on workstation # [id number] Dict: 06/20/181700 Trans: 06/20/181742 Interpreted by: MARTHA MCCLAIN Electronically signed by: MARTHA MCCLAIN 06/20/181742 Reviewed: Reviewed by Me Departure Impression Primary Impression: Migraine Disposition: 01 HOME, SELF-CARE Condition: Stable/Unchanged Departure-Patient Inst. Decision time for Depature: 17:06 Referrals: CAMILO FLYNN DO (PCP/Family) Primary Care Physician Patient Instructions: Migraine Headache (DC) Add. Discharge Instructions: You may use ibuprofen and Tylenol as directed by the bottle for additional pain relief. Follow-up with Dr. Flynn within 1 week for recheck. Return back to the emergency room for any worsening symptoms or concerns as needed. All discharge instructions reviewed with patient and/or family. Voiced understanding. PATRIZIA LEHMAN Jun 20, 2018 17:09
[2018-06-20 18:10] VITALS: BP 135/80
== END 2018-06-20 17:38 | disposition home or self-care (01) ==
LOC: EDUNIT# 16:22 → ER 16:23
DX: G43.909 Migraine, unspecified, not intractable, without status migrainosus (principal); G47.30 Sleep apnea, unspecified; I10 Essential (primary) hypertension; K21.9 Gastro-esophageal reflux disease without esophagitis; Z82.49 Family history of ischemic heart disease and other diseases of the circulatory system; Z80.49 Family history of malignant neoplasm of other genital organs; Z87.19 Personal history of other diseases of the digestive system; Z85.41 Personal history of malignant neoplasm of cervix uteri; Z79.82 Long term (current) use of aspirin; Z77.22 Contact with and (suspected) exposure to environmental tobacco smoke (acute) (chronic); Z90.711 Acquired absence of uterus with remaining cervical stump; Z98.890 Other specified postprocedural states
CPT/HCPCS: 70450

== ENCOUNTER 2018-08-04 11:47 | Emergency (ER) | payer MEDICAID | END 2018-08-04 13:33 | disposition home or self-care (01) | LOC: ER 11:47 ==

== ENCOUNTER 2018-08-11 18:49 | Emergency (ER) | payer MEDICAID ==
[~2018-08-11] VITALS: Ht 167.6 cm; Wt 100.9 kg
--- OUTSIDE RECORDS SUMMARY | 2018-08-11 19:01 | XMS REPORT | Clinical Summary ---
Author Author [facility] Organization [facility] Address Unknown Phone Unavailable Care Team Providers Care Canary Breeder Name Role Phone Jeanmarie Greenberg PCP Source Comments Some departments are not documenting in the electronic medical record. If you do not see the information that you expected, contact Release of Information in the Health Information Management department at [phone] for further assistance in locating additional records.[facility] Allergies No Known Allergies Medications End Date Status Medication Sig Dispensed Refills Start Date Active oxygen-air delivery Use as 0 systems (HORIZON NASAL directed. CPAP SYSTEM MISC) Active ALPRAZolam (XANAX) 0.25 Take 0.25 mg 0 mg tablet by mouth three times daily as needed for Anxiety. Active aspirin EC 81 mg tablet Take 81 mg by 0 mouth daily. Take with food. Active omeprazole DR(+) Take 20 mg by 0 (PRILOSEC) 20 mg capsule mouth daily before breakfast. Active valsartan (DIOVAN) 160 mg Take one 90 tablet 3 tablet tablet by 8 mouth daily. 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 avg HR 87 bpm Left bundle branch block 02/21/2018 Dilated cardiomyopathy 02/21/2018 Overview: 12/14/2017 EF 30 - 35%. concentric LVH. LA dilated. Mod MR and TR. PASP 35 - 40 mmHg 12/17/17 wearing LifeVest Status post placement of implantable loop recorder 02/21/2018 Chest pain 02/21/2018 Overview: 05/11/16 cardiac cath: no significant CAD, LVEF 50%, LVEDP 11, PWP 13, No significant MR 05/04/16 MPI no evidence of significant ischemia or infarction. impairment of global LV systolic function with mild global hypokinesis and LVEF 42%. mild to mod cardiomegaly 04/24/16 CT angiogram no evidence of abn chest or pulmonary embolism. 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 treated with hysterectomy without oophorectomy Tobacco use 02/21/2018 SHLOMO on CPAP 02/21/2018 GERD (gastroesophageal reflux disease) 02/21/2018 SVT (supraventricular tachycardia) 02/21/2018 Family History Medical History Relation Name Comments Heart Disease Father Hypertension Father Cancer-Lung Maternal Grandfather Heart Disease Maternal Grandfather Diabetes Maternal Grandmother Heart Disease Maternal Grandmother Cancer Mother retinal Cervical Cancer Mother Hypertension Mother Relation Name Status Comments Father Alive tobacco user Maternal Grandfather Maternal Grandmother Mother Alive tobacco user Social History Date Tobacco Use Types Packs/Day Years Used Current Every Day Smoker Cigarettes 1 Smokeless Tobacco: Never Used Alcohol Use Drinks/Week oz/Week Comments No Sex Assigned at Date Recorded Not on file Industry Job Start Date Occupation Not on file Not on file Not on file Travel End Travel History Travel Start No recent travel history available. Last Filed Vital Signs Time Taken Vital Sign Reading 04/18/2018 9:18 AM CDT Blood Pressure 140/88 04/18/2018 9:18 AM CDT Pulse 55 03/08/2018 9:22 AM CDT Temperature 37.1 C (98.7 F) - Respiratory Rate - 03/08/2018 9:22 AM CDT Oxygen Saturation 98% - Inhaled Oxygen - Concentration 04/18/2018 9:18 AM CDT Weight 102.9 kg (226 lb 12.8 oz) 04/18/2018 9:18 AM CDT Height 167.6 cm (5' 6") 04/18/2018 9:18 AM CDT Body Mass Index 36.61 Plan of Treatment Health Maintenance Due Date Last Done Comments PHYSICAL (COMPREHENSIVE) 11/05/1983 EXAM HIV SCREENING 11/05/1991 DTAP/TDAP VACCINES (1 - 1994 Tdap) CERVICAL CANCER SCREENING 2006 BREAST CANCER SCREENING 2016 INFLUENZA VACCINE 03/01/2018 Implants Device Identifier Shelf Expiration Date Model / Serial / Lot Implanted Type Area Manufactur er Loop Recorder Loop Recorder Procedures Comments Procedure Name Priority Date/Time Associated Diagnosis ECG-SCAN 06/12/2018 7:40 AM CHILD AND YOUTH PROGRAM ASSISTANT from Last 3 Months Results * ECG-SCAN (06/12/2018 7:40 AM CHILD AND YOUTH PROGRAM ASSISTANT) Narrative Performed At Ordered by an unspecified provider. from Last 3 Months Insurance Payer Benefit Subscriber ID Type Phone Address Plan / Group [place]ICAID [place] U[place] xxxxxxxxxxx Medicaid [employer] Advance Directives Patient has advance care planning documents, and code status on file. For more information, please contact: [facility] [address] [place] [address] Date Inactivated Comments Code Status Date Activated 03/08/2018 11:53 AM Full Code 03/07/2018 9:26 AM Provider has discussed Code Status No, discussion not w/Patient or Family? necessary based on Dx
--- OUTSIDE RECORDS SUMMARY | 2018-08-11 19:05 | XMS REPORT | Continuity of Care Document ---
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 SOUZA FACC, ALI FACP CCDS Ot Z72.0 TOBACCO USE 05/19/2016 ABDIRIZAK SOUZA FACC, ALI FACP CCDS Ot G47.30 SLEEP APNEA, UNSPECIFIED 05/19/2016 ABDIRIZAK CANTUC, ALI FACP CCDS Ot R06.02 SHORTNESS OF BREATH 05/19/2016 ABDIRIZAK SOUZA FACC, ALI FACP CCDS Ot R07.89 OTHER CHEST PAIN 05/19/2016 ABDIRIZAK SOUZA FACC, ALI FACP CCDS Ot Z72.0 TOBACCO USE 05/19/2016 CAMILO FLYNN DO Ot D72.829 ELEVATED WHITE BLOOD CELL COUNT, UNSPECI 05/20/2016 ABDIRIZAK SOUZA FACC, ALI FACP CCDS Ot E78.1 PURE HYPERGLYCERIDEMIA 05/20/2016 ABDIRIZAK SOUZA FACC, ALI FACP CCDS Ot I42.0 DILATED CARDIOMYOPATHY 05/20/2016 ABDIRIZAK SOUZA FACC, ALI FACP CCDS Ot R00.2 PALPITATIONS 05/20/2016 ABDIRIZAK SOUZA FACC, ALI FACP CCDS Ot G47.30 SLEEP APNEA, UNSPECIFIED 05/20/2016 ABDIRIZAK SOUZA FACC, ALI FACP CCDS Ot R06.02 SHORTNESS OF BREATH 05/20/2016 ABDIRIZAK SOUZA FACC, ALI FACP CCDS Ot R07.89 OTHER CHEST PAIN 05/20/2016 ABDIRIZAK SOUZA FACC, ALI FACP CCDS Ot Z72.0 TOBACCO USE 05/20/2016 ABDIRIZAK SOUZA FACC, ALI FACP CCDS Ot G47.30 SLEEP APNEA, UNSPECIFIED 05/20/2016 ABDIRIZAK SOUZA FACC, ALI FACP CCDS Ot R06.02 SHORTNESS OF BREATH 05/20/2016 ABDIRIZAK SOUZA FACC, ALI FACP CCDS Ot R07.89 OTHER CHEST PAIN 05/20/2016 ABDIRIZAK SOUZA FACC, ALI FACP CCDS Ot Z72.0 TOBACCO USE 05/20/2016 ABDIRIZAK SOUZA FACC, ALI FACP CCDS Ot G47.30 SLEEP APNEA, UNSPECIFIED 05/20/2016 ABDIRIZAK SOUZA [facility], ALI FACP CCDS Ot R06.02 SHORTNESS OF BREATH 05/20/2016 ABDIRIZAK SOUZA [facility], ALI FACP CCDS Ot R07.89 OTHER CHEST PAIN 05/20/2016 ABDIRIZAK SOUZA FACC, ALI FACP CCDS Ot Z72.0 TOBACCO USE 05/20/2016 GEE RAMEY CAIMLO Juan C Ot D72.829 ELEVATED WHITE BLOOD CELL COUNT, UNSPECI 05/20/2016 ABDIRIZAK SOUZA FACC, ALI FACP CCDS Ot E78.1 PURE HYPERGLYCERIDEMIA 05/20/2016 ABDIRIZAK SOUZA FACC, ALI FACP CCDS Ot I42.0 DILATED CARDIOMYOPATHY 05/20/2016 ABDIRIZAK SOUZA [facility], ALI FACP CCDS Ot R00.2 PALPITATIONS 05/21/2016 ABDIRIZAK SOUZA FACC, ALI FACP CCDS Ot G47.30 SLEEP APNEA, UNSPECIFIED 05/21/2016 ABDIRIZAK SOUZA FACC, ALI FACP CCDS Ot R06.02 SHORTNESS OF BREATH 05/21/2016 ABDIRIZAK CANTUC, ALI FACP CCDS Ot R07.89 OTHER CHEST PAIN 05/21/2016 ABDIRIZAK SOUZA FACC, ALI FACP CCDS Ot Z72.0 TOBACCO USE 06/01/2016 ABDIRIZAK CANTUC, ALI FACP CCDS Ot E66.9 OBESITY, UNSPECIFIED 06/01/2016 ABDIRIZAK SOUZA FACC, ALI FACP CCDS Ot F17.210 NICOTINE DEPENDENCE, CIGARETTES, UNCOMPL 06/01/2016 ABDIRIZAK SOUZA FACC, ALI FACP CCDS Ot I44.7 LEFT BUNDLE-BRANCH BLOCK, UNSPECIFIED 06/01/2016 ABDIRIZAK SOUZA FACC, ALI FACP CCDS Ot R06.09 OTHER FORMS OF DYSPNEA 06/01/2016 ABDIRIZAK SOUZA FACC, ALI FACP CCDS Ot R07.89 OTHER CHEST PAIN 06/01/2016 ABDIRIZAK SOUZA FACC, ALI FACP CCDS Ot Z68.41 BODY MASS INDEX (BMI) 40.0-44.9, ADULT 06/01/2016 ABDIRIZAK SOUZA FACC, ALI FACP CCDS Ot 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.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 OTHER AIR BATTLE 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 06/02/2016 ABDIRIZAK SOUZA FACC, ALI FACP CCDS Ot E78.1 PURE HYPERGLYCERIDEMIA 06/02/2016 ABDIRIZAK SOUZA FACC, ALI FACP CCDS Ot I42.0 DILATED CARDIOMYOPATHY 06/02/2016 ABDIRIZAK SOUZA FACC, ALI FACP CCDS Ot R00.2 PALPITATIONS 06/02/2016 ABDIRIZAK SOUZA FACC, ALI FACP CCDS Ot E78.1 PURE HYPERGLYCERIDEMIA 06/02/2016 ABDIRIZAK SOUZA FACC, ALI FACP CCDS Ot I42.0 DILATED CARDIOMYOPATHY 06/02/2016 ABDIRIZAK SOUZA FACC, ALI FACP CCDS Ot R00.2 PALPITATIONS 06/03/2016 ABDIRIZAK SOUZA FACC, ALI FACP CCDS Ot E78.1 PURE HYPERGLYCERIDEMIA 06/03/2016 ABDIRIZAK SOUZA FACC, ALI FACP CCDS Ot I42.0 DILATED CARDIOMYOPATHY 06/03/2016 ABDIRIZAK SOUZA FACC, ALI FACP CCDS Ot R00.2 PALPITATIONS 06/07/2016 ABDIRIZAK SOUZA FACC, ALI FACP CCDS Ot E78.1 PURE HYPERGLYCERIDEMIA 06/07/2016 ABDIRIZAK SOUZA FACC, ALI FACP CCDS Ot I42.0 DILATED CARDIOMYOPATHY 06/07/2016 ABDIRIZAK SOUZA FACC, ALI FACP CCDS Ot R00.2 PALPITATIONS 06/17/2016 ABDIRIZAK SOUZA FACC, ALI FACP CCDS Ot E78.1 PURE HYPERGLYCERIDEMIA 06/17/2016 ABDIRIZAK SOUZA FACC, ALI FACP CCDS Ot I42.0 DILATED CARDIOMYOPATHY 06/17/2016 ABDIRIZAK SOUZA FACC, ALI FACP CCDS Ot R00.2 PALPITATIONS 06/21/2016 NICOLE RAMEY ANN Irving Ot E66.9 OBESITY, UNSPECIFIED 06/21/2016 NICOLE DO, ANN M Ot Z72.0 TOBACCO USE 06/22/2016 NICOLE DO ANN M Ot E66.9 OBESITY, UNSPECIFIED 06/22/2016 NICOLE DO, ANN M Ot Z72.0 TOBACCO USE 06/24/2016 NICOLE DO, ANN Irving Ot E66.9 OBESITY, UNSPECIFIED 06/24/2016 NICOLE DO, ANN M Ot Z72.0 TOBACCO USE 07/02/2016 NICOLE RAMEY ANN Irving Ot E66.9 OBESITY, UNSPECIFIED 07/02/2016 NICOLE DO, ANN [place] Ot Z72.0 TOBACCO USE 07/18/2016 SHAKEEL MOSELEY Ot F17.210 NICOTINE DEPENDENCE, CIGARETTES, UNCOMPL 07/18/2016 SHAKEEL MOSELEY Ot I10 ESSENTIAL (PRIMARY) HYPERTENSION 07/18/2016 SHAKEEL MOSELEY Ot S40.021A CONTUSION OF RIGHT UPPER ARM, INITIAL EN 07/18/2016 SHAKEEL MOSELEY Ot S49.91XA UNSP INJURY OF RIGHT SHOULDER AND UPPER 07/18/2016 SHAKEEL MOSELEY Ot W01.0XXA FALL SAME LEV FROM SLIP/TRIP W/O STRIKE 07/18/2016 SHAKEEL MOSELEY Ot Y99.8 OTHER EXTERNAL CAUSE STATUS 07/18/2016 SHAKEEL MOSELEY Ot Z79.82 FPC (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 07/18/2016 SHAKEEL MOSELEY Ot Z79.899 OTHER FPC (CURRENT) DRUG THERAPY 07/20/2016 SHAKEEL MOSELEY Ot F17.210 NICOTINE DEPENDENCE, CIGARETTES, UNCOMPL 07/20/2016 SHAKEEL MOSELEY Ot I10 ESSENTIAL (PRIMARY) HYPERTENSION 07/20/2016 SHAKEEL MOSELEY Ot S40.021A CONTUSION OF RIGHT UPPER ARM, INITIAL EN 07/20/2016 SHAKEEL MOSELEY Ot S49.91XA UNSP INJURY OF RIGHT SHOULDER AND UPPER 07/20/2016 SHAKEEL MOSELEY Ot W01.0XXA FALL SAME LEV FROM SLIP/TRIP W/O STRIKE 07/20/2016 SHAKEEL MOSELEY Ot Y99.8 OTHER EXTERNAL CAUSE STATUS 07/20/2016 SHAKEEL MOSELEY Ot 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.82 AIR BATTLE 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 07/20/2016 SHAKEEL MOSELEY Ot Z79.899 OTHER FPC (CURRENT) DRUG THERAPY 07/20/2016 SHAKEEL MOSELEY Ot F17.210 NICOTINE DEPENDENCE, CIGARETTES, UNCOMPL 07/20/2016 SHAKEEL MOSELEY Ot I10 ESSENTIAL (PRIMARY) HYPERTENSION 07/20/2016 SHAKEEL MOSELEY Ot S40.021A CONTUSION OF RIGHT UPPER ARM, INITIAL EN 07/20/2016 SHAKEEL MOSELEY Ot S49.91XA UNSP INJURY OF RIGHT SHOULDER AND UPPER 07/20/2016 SHAKEEL MOSELEY Ot W01.0XXA FALL SAME LEV FROM SLIP/TRIP W/O STRIKE 07/20/2016 SHAKEEL MOSELEY Ot Y99.8 OTHER EXTERNAL CAUSE STATUS 07/20/2016 SHAKEEL MOSELEY Ot Z79.82 FPC (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 07/20/2016 SHAKEEL MOSELEY Ot Z79.899 OTHER AIR BATTLE 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 07/22/2016 ANN RIVERA DO Ot G47.30 SLEEP APNEA, UNSPECIFIED 07/22/2016 ANN RIVERA DO Ot R06.83 SNORING 07/22/2016 ANN RIVERA DO Ot G47.30 SLEEP APNEA, UNSPECIFIED 07/22/2016 ANN RIVERA DO Ot R06.83 SNORING 07/27/2016 ANN RIVERA DO Ot G47.30 SLEEP APNEA, UNSPECIFIED 07/27/2016 ANN RIVERA DO Ot R06.83 SNORING 09/15/2016 GEORGES GRAVES APRN Ot E66.9 OBESITY, UNSPECIFIED 09/15/2016 GEORGES GRAVES APRN Ot G47.33 OBSTRUCTIVE SLEEP APNEA (ADULT) (PEDIATR 09/15/2016 GEORGES GRAVES APRN Ot J40 BRONCHITIS, NOT SPECIFIED ACUTE OR CH 09/15/2016 GEORGES GRAVES COMMUNITY HE[employer] WORKER Ot R00.2 PALPITATIONS 09/15/2016 GEORGES GRAVES COMMUNITY HEALTH WORKER Ot R06.02 SHORTNESS OF BREATH 09/15/2016 GEORGES GRAVES COMMUNITY HEALTH WORKER Ot Z72.0 TOBACCO USE 10/01/2016 GEORGES GRAVES COMMUNITY HEALTH WORKER Ot E66.9 OBESITY, UNSPECIFIED 10/01/2016 GEORGES GRAVES COMMUNITY HEALTH WORKER Ot G47.33 OBSTRUCTIVE SLEEP APNEA (ADULT) (PEDIATR 10/01/2016 GEORGES GRAVES COMMUNITY HEALTH WORKER Ot J40 BRONCHITIS, NOT SPECIFIED ACUTE OR CH 10/01/2016 GEORGES GRAVES COMMUNITY HEALTH WORKER Ot R00.2 PALPITATIONS 10/01/2016 GEORGES GRAVES COMMUNITY HEALTH WORKER Ot R06.02 SHORTNESS OF BREATH 10/01/2016 GEORGES GRAVES COMMUNITY HEALTH WORKER Ot Z72.0 TOBACCO USE 06/11/2017 KALA MIX MD Ot F17.210 NICOTINE DEPENDENCE, CIGARETTES, UNCOMPL 06/11/2017 KALA MIX MD Ot K21.9 GASTRO-ESOPHAGEAL REFLUX DISEASE WITHOUT 06/11/2017 KALA MIX MD Ot M25.512 PAIN IN LEFT SHOULDER 06/11/2017 KALA MIX MD Ot W18.09XA STRIKING AGAINST OTH OBJECT W SUBSEQUENT 06/11/2017 KALA MIX MD Ot Z85.41 PERSONAL HISTORY OF MALIGNANT NEOPLASM O 06/11/2017 KALA MIX MD Ot Z87.11 PERSONAL HISTORY OF PEPTIC ULCER DISEASE 06/11/2017 KALA MIX MD Ot Z90.710 ACQUIRED ABSENCE OF BOTH CERVIX AND UTER 06/17/2017 KALA MIX MD Ot F17.210 NICOTINE DEPENDENCE, CIGARETTES, UNCOMPL 06/17/2017 KALA MXI MD Ot K21.9 GASTRO-ESOPHAGEAL REFLUX DISEASE WITHOUT 06/17/2017 KALA MIX MD Ot M25.512 PAIN IN LEFT SHOULDER 06/17/2017 KALA MIX MD Ot W18.09XA STRIKING AGAINST OTH OBJECT W SUBSEQUENT 06/17/2017 KALA MIX MD Ot Z85.41 PERSONAL HISTORY OF MALIGNANT NEOPLASM O 06/17/2017 KALA MIX MD Ot Z87.11 PERSONAL HISTORY OF PEPTIC ULCER DISEASE 06/17/2017 KALA MIX MD Ot Z90.710 ACQUIRED ABSENCE OF BOTH CERVIX AND UTER 07/02/2017 KALA MIX MD Ot F17.210 NICOTINE DEPENDENCE, CIGARETTES, UNCOMPL 07/02/2017 KALA MIX MD Ot I10 ESSENTIAL (PRIMARY) HYPERTENSION 07/02/2017 KALA MIX MD Ot K21.9 GASTRO-ESOPHAGEAL REFLUX DISEASE WITHOUT 07/02/2017 KALA MIX MD Ot M79.602 PAIN IN LEFT ARM 07/02/2017 KALA MIX MD Ot S50.12XA CONTUSION OF LEFT FOREARM, INITIAL ENCOU 07/02/2017 KALA MIX MD Ot W10.1XXA FALL (ON)(FROM) SIDEWALK CURB, INITIAL E 07/02/2017 KALA MIX MD Ot Z23 ENCOUNTER FOR IMMUNIZATION 07/02/2017 KALA MIX MD Ot Z85.840 PERSONAL HISTORY OF MALIGNANT NEOPLASM O 07/02/2017 KALA MIX MD Ot Z87.11 PERSONAL HISTORY OF PEPTIC ULCER DISEASE 07/08/2017 KALA MIX MD Ot F17.210 NICOTINE DEPENDENCE, CIGARETTES, UNCOMPL 07/08/2017 KALA MIX MD Ot I10 ESSENTIAL (PRIMARY) HYPERTENSION 07/08/2017 KALA MIX MD Ot K21.9 GASTRO-ESOPHAGEAL REFLUX DISEASE WITHOUT 07/08/2017 KALA MIX MD Ot M79.602 PAIN IN LEFT ARM 07/08/2017 KALA MIX MD Ot S50.12XA CONTUSION OF LEFT FOREARM, INITIAL ENCOU 07/08/2017 KALA MIX MD Ot W10.1XXA FALL (ON)(FROM) SIDEWALK CURB, INITIAL E 07/08/2017 KALA MIX MD Ot Z23 ENCOUNTER FOR IMMUNIZATION 07/08/2017 KALA MIX MD Ot Z85.840 PERSONAL HISTORY OF MALIGNANT NEOPLASM O 07/08/2017 KALA MIX MD Ot Z87.11 PERSONAL HISTORY OF PEPTIC ULCER DISEASE 12/14/2017 ABDIRIZAK SOUZA FACC, JONATHAN CARLIN CCDS Ot G47.30 SLEEP APNEA, UNSPECIFIED 12/14/2017 ABDIRIZAK SOUZA FACC, ALI FACP CCDS Ot R06.02 SHORTNESS OF BREATH 12/14/2017 ABDIRIZAK MD FACC, ALI FACP CCDS Ot R07.89 OTHER CHEST PAIN 12/14/2017 ABDIRIZAK MD FACC, ALI FACP CCDS Ot Z72.0 TOBACCO USE 12/14/2017 ABDIRIZAK MD FACC, ALI FACP CCDS Ot G47.30 SLEEP APNEA, UNSPECIFIED 12/14/2017 ABDIRIZAK MD FACC, ALI FACP CCDS Ot R06.02 SHORTNESS OF BREATH 12/14/2017 ABDIRIZAK MD FAC, ALI FACP CCDS Ot R07.89 OTHER CHEST PAIN 12/14/2017 ABDIRIZAK MD FACC, ALI FACP CCDS Ot Z72.0 TOBACCO USE 12/14/2017 ABDIRIZAK MD FACC, ALI FACP CCDS Ot G47.30 SLEEP APNEA, UNSPECIFIED 12/14/2017 ABDIRIZAK MD FACC, ALI FACP CCDS Ot R06.02 SHORTNESS OF BREATH 12/14/2017 ABDIRIZAK SOUZA [facility], ALI FACP CCDS Ot R07.89 OTHER CHEST PAIN 12/14/2017 ABDIRIZAK SOUZA [facility], ALI FACP CCDS Ot Z72.0 TOBACCO USE 12/14/2017 CAMILO FLYNN DO Ot D72.829 ELEVATED WHITE BLOOD CELL COUNT, UNSPECI 12/14/2017 ABDIRIZAK SOUZA FACC, ALI FACP CCDS Ot E78.1 PURE HYPERGLYCERIDEMIA 12/14/2017 ABDIRIZAK SOUZA [facility], ALI FACP CCDS Ot I42.0 DILATED CARDIOMYOPATHY 12/14/2017 ABDIRIZAK SOUZA [facility], ALI FACP CCDS Ot R00.2 PALPITATIONS 12/14/2017 ABDIRIZAK SOUZA [facility], ALI FACP CCDS Ot E78.1 PURE HYPERGLYCERIDEMIA 12/14/2017 ABDIRIZAK SOUZA [facility], ALI FACP CCDS Ot I42.0 DILATED CARDIOMYOPATHY 12/14/2017 ABDIRIZAK SOUZA [facility], ALI FACP CCDS Ot R00.2 PALPITATIONS 12/14/2017 ANN RIVERA DO Ot E66.9 OBESITY, UNSPECIFIED 12/14/2017 ANN RIVERA DO Ot Z72.0 TOBACCO USE 12/14/2017 GEORGES GRAVES APRN Ot E66.9 OBESITY, UNSPECIFIED 12/14/2017 GEORGES GRAVES COMMUNITY HEALTH WORKER Ot G47.33 OBSTRUCTIVE SLEEP APNEA (ADULT) (PEDIATR 12/14/2017 GEORGES GRAVES COMMUNITY HEALTH WORKER Ot J40 BRONCHITIS, NOT SPECIFIED ACUTE OR CH 12/14/2017 GEORGES GRAVES COMMUNITY HEALTH WORKER Ot R00.2 PALPITATIONS 12/14/2017 GEORGES GRAVES COMMUNITY HEALTH WORKER Ot R06.02 SHORTNESS OF BREATH 12/14/2017 GEORGES GRAVES COMMUNITY HEALTH WORKER Ot Z72.0 TOBACCO USE 12/16/2017 GELLENDER DO, CAMILO Juan C Ot E66.9 OBESITY, UNSPECIFIED 12/16/2017 GELLENDER DO, CAMILO Irizarry Ot E78.1 PURE HYPERGLYCERIDEMIA 12/16/2017 GELLENDER DO, CAMILO Irizarry Ot F17.210 NICOTINE DEPENDENCE, CIGARETTES, UNCOMPL 12/16/2017 GELLENDER DO, CAMILO Juan C Ot G47.33 OBSTRUCTIVE SLEEP APNEA (ADULT) (PEDIATR 12/16/2017 GELLENDER DO, CAMILO Irizarry Ot I10 ESSENTIAL (PRIMARY) HYPERTENSION 12/16/2017 [facility] CAMILO Juan C Ot I25.10 ATHSCL HEART DISEASE OF [place] CORONARY 12/16/2017 [facility] CAMILO Juan C Ot I42.0 DILATED CARDIOMYOPATHY 12/16/2017 GELLENDER DO, CAMILO Irizarry Ot I44.7 LEFT BUNDLE-BRANCH BLOCK, UNSPECIFIED 12/16/2017 GELLENDER DO, CAMILO Juan C Ot K21.9 GASTRO-ESOPHAGEAL REFLUX DISEASE WITHOUT 12/16/2017 GELLENDER DO, CAMILO Juan C Ot R00.0 TACHYCARDIA, UNSPECIFIED 12/16/2017 GELLENDER DO, CAMILO Irizarry Ot R00.2 PALPITATIONS 12/16/2017 [facility] CAMILO Irizarry Ot R07.89 OTHER CHEST PAIN 12/16/2017 GELLENDER DO, CAMILO Irizarry Ot Z68.36 BODY MASS INDEX (BMI) 36.0-36.9, ADULT 12/16/2017 GELLENDER DO, CAMILO Juan C Ot Z85.41 PERSONAL HISTORY OF MALIGNANT NEOPLASM O 01/04/2018 ABDIRIZAK SOUZA FACC, ALI FACP CCDS Ot I42.0 DILATED CARDIOMYOPATHY 01/04/2018 ABDIRIZAK SOUZA FACC, ALI FACP CCDS Ot I47.2 VENTRICULAR TACHYCARDIA 01/15/2018 RAQUEL SOUZA, [place] Ot F17.210 NICOTINE DEPENDENCE, CIGARETTES, UNCOMPL 01/15/2018 SPRING GARCÍA MD Ot I10 ESSENTIAL (PRIMARY) HYPERTENSION 01/15/2018 SPRING GARCÍA MD Ot I42.0 DILATED CARDIOMYOPATHY 01/15/2018 SPRING GARCÍA MD Ot K21.9 GASTRO-ESOPHAGEAL REFLUX DISEASE WITHOUT 01/15/2018 SPRING GARCÍA MD Ot R00.2 PALPITATIONS 01/15/2018 SPRING GARCÍA MD Ot R07.9 CHEST PAIN, UNSPECIFIED 01/15/2018 SPRING GARCÍA MD Ot Z79.82 AIR BATTLE 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 01/15/2018 SPRING GARCÍA MD Ot Z85.41 PERSONAL HISTORY OF MALIGNANT NEOPLASM O 01/15/2018 SPRING GARCÍA MD Ot Z85.840 PERSONAL HISTORY OF MALIGNANT NEOPLASM O 01/15/2018 SPRING GARCÍA MD Ot Z87.81 PERSONAL HISTORY OF (HEALED) TRAUMATIC F 01/15/2018 SPRING GARCÍA MD Ot Z90.710 ACQUIRED ABSENCE OF BOTH CERVIX AND UTER 01/17/2018 SPRING GARCÍA MD Ot F17.210 NICOTINE DEPENDENCE, CIGARETTES, UNCOMPL 01/17/2018 SPRING GARCÍA MD Ot I10 ESSENTIAL (PRIMARY) HYPERTENSION 01/17/2018 SPRING GARCÍA MD Ot I42.0 DILATED CARDIOMYOPATHY 01/17/2018 SPRING GARCÍA MD Ot K21.9 GASTRO-ESOPHAGEAL REFLUX DISEASE WITHOUT 01/17/2018 SPRING GARCÍA MD Ot R00.2 PALPITATIONS 01/17/2018 SPRING GARCÍA MD Ot R07.9 CHEST PAIN, UNSPECIFIED 01/17/2018 SPRING GARCÍA MD Ot Z79.82 FPC (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 01/17/2018 SPRING GARCÍA MD Ot Z85.41 PERSONAL HISTORY OF MALIGNANT NEOPLASM O 01/17/2018 SPRING GARCÍA MD Ot Z85.840 PERSONAL HISTORY OF MALIGNANT NEOPLASM O 01/17/2018 SPRING GARCÍA MD Ot Z87.81 PERSONAL HISTORY OF (HEALED) TRAUMATIC F 01/17/2018 SPRING GARCÍA MD Ot Z90.710 ACQUIRED ABSENCE OF BOTH CERVIX AND UTER 01/19/2018 ABDIRIZAK SOUZA FACC, ALI FACP CCDS Ot I42.0 DILATED CARDIOMYOPATHY 01/19/2018 ABDIRIZAK SOUZA FACC, ALI FACP CCDS Ot I47.2 VENTRICULAR TACHYCARDIA 02/20/2018 SPRING GARCÍA MD Ot F17.210 NICOTINE DEPENDENCE, CIGARETTES, UNCOMPL 02/20/2018 SPRING GARCÍA MD Ot G47.30 SLEEP APNEA, UNSPECIFIED 02/20/2018 SPRING GARCÍA MD Ot I10 ESSENTIAL (PRIMARY) HYPERTENSION 02/20/2018 SPRING GARCÍA MD Ot K21.9 GASTRO-ESOPHAGEAL REFLUX DISEASE WITHOUT 02/20/2018 SPRING GARCÍA MD Ot M25.531 PAIN IN RIGHT WRIST 02/20/2018 SPRING GARCÍA MD Ot X58.XXXA EXPOSURE TO OTHER SPECIFIED FACTORS, INI 02/20/2018 SPRING GARCÍA MD Ot Z79.82 FPC (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 02/20/2018 SPRING GARCÍA MD Ot Z80.49 FAMILY HISTORY OF MALIGNANT NEOPLASM OF 02/20/2018 SPRING GARCÍA MD Ot Z82.49 FAMILY HX OF ISCHEM HEART DIS AND OTH DI 02/20/2018 SPRING GARCÍA MD Ot Z85.41 PERSONAL HISTORY OF MALIGNANT NEOPLASM O 02/20/2018 SPRING GARCÍA MD Ot Z85.71 PERSONAL HISTORY OF [place] LYMPHOMA 02/20/2018 SPRING GARCÍA MD Ot Z87.19 PERSONAL HISTORY OF OTHER DISEASES OF TH 02/20/2018 SPRING GARCÍA MD Ot Z90.711 ACQUIRED ABSENCE OF UTERUS WITH REMAININ 02/20/2018 SPRING GARCÍA MD Ot Z96.0 PRESENCE OF UROGENITAL IMPLANTS 03/20/2018 Ot I47.1 SUPRAVENTRICULAR TACHYCARDIA 03/20/2018 Ot R00.2 PALPITATIONS 06/20/2018 PATRIZIA LEHMAN Ot G43.909 MIGRAINE, UNSP, NOT INTRACTABLE, WITHOUT 06/20/2018 PATRIZIA LEHMAN Ot G47.30 SLEEP APNEA, UNSPECIFIED 06/20/2018 PATRIZIA LEHMAN Ot I10 ESSENTIAL (PRIMARY) HYPERTENSION 06/20/2018 PATRIZIA LEHMAN Ot K21.9 GASTRO-ESOPHAGEAL REFLUX DISEASE WITHOUT 06/20/2018 PATRIZIA LEHMAN Ot Z77.22 CNTCT W AND EXPSR TO ENVIRON TOBACCO SMO 06/20/2018 PATRIZIA LEHMAN Ot Z79.82 FPC (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 06/20/2018 CASSIE LEHMANIS Ot Z80.49 FAMILY HISTORY OF MALIGNANT NEOPLASM OF 06/20/2018 CASSIE LEHMANIS Ot Z82.49 FAMILY HX OF ISCHEM HEART DIS AND OTH DI 06/20/2018 CASSIE LEHMANIS Ot Z85.41 PERSONAL HISTORY OF MALIGNANT NEOPLASM O 06/20/2018 CASSIE LEHMANIS Ot Z87.19 PERSONAL HISTORY OF OTHER DISEASES OF TH 06/20/2018 CASSIE LEHMANIS Ot Z90.711 ACQUIRED ABSENCE OF UTERUS WITH REMAININ 06/20/2018 CASSIE LEHMANIS Ot Z98.890 OTHER SPECIFIED POSTPROCEDURAL STATES 06/23/2018 CASSIE LEHMANIS Ot G43.909 MIGRAINE, UNSP, NOT INTRACTABLE, WITHOUT 06/23/2018 CASSIE LEHMANIS Ot G47.30 SLEEP APNEA, UNSPECIFIED 06/23/2018 PATRIZIA LEHMAN Ot I10 ESSENTIAL (PRIMARY) HYPERTENSION 06/23/2018 CASSIE LEHMANIS Ot K21.9 GASTRO-ESOPHAGEAL REFLUX DISEASE WITHOUT 06/23/2018 DOMINIK PATRIZIA Ot Z77.22 CNTCT W AND EXPSR TO ENVIRON TOBACCO SMO 06/23/2018 CASSIE LEHMANIS Ot Z79.82 FPC (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 06/23/2018 CASSIE LEHMANIS Ot Z80.49 FAMILY HISTORY OF MALIGNANT NEOPLASM OF 06/23/2018 CASSIE LEHMANIS Ot Z82.49 FAMILY HX OF ISCHEM HEART DIS AND OTH DI 06/23/2018 CASSIE LEHMANIS Ot Z85.41 PERSONAL HISTORY OF MALIGNANT NEOPLASM O 06/23/2018 ADAMCASSIE TOROIS Ot Z87.19 PERSONAL HISTORY OF OTHER DISEASES OF TH 06/23/2018 CASSIE LEHMANIS Ot Z90.711 ACQUIRED ABSENCE OF UTERUS WITH REMAININ 06/23/2018 DOMINIK PATRIZIA Ot Z98.890 OTHER SPECIFIED POSTPROCEDURAL STATES Procedures Code Description [place] [address] OXIMETRY 10/29/2013 14056 ROUTINE VENIPUNCTURE 11/09/2013 66826 CBC 11/09/2013 59132 MYCOPLASMA ANTIBODY 11/10/2013 24347 UA LONG DIP 04/04/2014 10594 OXIMETRY 04/11/2014 66874 ROUTINE VENIPUNCTURE 04/16/2014 63882 XRAY CHEST 2 VIEW 04/16/2014 49301 CBC 04/16/2014 80226 MYCOPLASMA ANTIBODY 04/16/2014 Results Test Result Range Complete blood count (CBC) with automated white blood cell (WBC) differential - 04/24/16 19:35 Blood leukocytes automated count (number/volume) 12.6 10*3/uL 4.3-11.0 Blood erythrocytes automated count (number/volume) 4.76 10*6/uL 4.35-5.85 Venous blood hemoglobin measurement (mass/volume) 14.0 g/dL 11.5-16.0 Blood hematocrit (volume fraction) 41 % 35-52 Automated erythrocyte mean corpuscular volume 85 [foz_us] 80-99 Automated erythrocyte mean corpuscular hemoglobin (mass per erythrocyte) 29 pg 25-34 Automated erythrocyte mean corpuscular hemoglobin concentration measurement ( mass/volume) 35 g/dL 32-36 Automated erythrocyte distribution width ratio 13.6 % 10.0-14.5 Automated blood platelet count (count/volume) 240 10*3/uL 130-400 Automated blood platelet mean volume measurement 11.2 [foz_us] 7.4-10.4 Automated blood neutrophils/100 leukocytes 57 % 42-75 Automated blood lymphocytes/100 leukocytes 35 % 12-44 Blood monocytes/100 leukocytes 7 % 0-12 Automated blood eosinophils/100 leukocytes 1 % 0-10 Automated blood basophils/100 leukocytes 0 % 0-10 Blood neutrophils automated count (number/volume) 7.2 10*3 1.8-7.8 Blood lymphocytes automated count (number/volume) 4.4 10*3 1.0-4.0 Blood monocytes automated count (number/volume) 0.8 10*3 0.0-1.0 Automated eosinophil count 0.2 10*3/uL 0.0-0.3 Automated blood basophil count (count/volume) 0.1 10*3/uL 0.0-0.1 PT panel in platelet poor plasma by coagulation assay - 04/24/16 19:35 Prothrombin time (PT) in platelet poor plasma by coagulation assay 12.6 s 12.2-14.7 INR in platelet poor plasma or blood by coagulation assay 1.0 0.8-1.4 Activated partial thromboplastin time (aPTT) in platelet poor plasma bycoagulation assay - 04/24/16 19:35 Activated partial thromboplastin time (aPTT) in platelet poor plasma bycoagulation assay 29 s 24-35 Fibrin D-dimer FEU measurement in platelet poor plasma (mass/volume) - 19:35 Fibrin D-dimer FEU measurement in platelet poor plasma (mass/volume) 0.92 ug/mL 0.00-0.49 Comprehensive metabolic panel - 04/24/16 19:35 Serum or plasma sodium measurement (moles/volume) 138 mmol/L 135-145 Serum or plasma potassium measurement (moles/volume) 4.0 mmol/L 3.6-5.0 Serum or plasma chloride measurement (moles/volume) 109 mmol/L 98-107 Carbon dioxide 18 mmol/L 21-32 Serum or plasma anion gap determination (moles/volume) 11 mmol/L 5-14 Serum or plasma urea nitrogen measurement (mass/volume) 9 mg/dL 7-18 Serum or plasma creatinine measurement (mass/volume) 0.82 mg/dL 0.60-1.30 Serum or plasma urea nitrogen/creatinine mass ratio 11 NRG Serum or plasma creatinine measurement with calculation of estimated glomerular filtration rate > NRG Serum or plasma glucose measurement (mass/volume) 96 mg/dL 70-105 Serum or plasma calcium measurement (mass/volume) 8.5 mg/dL 8.5-10.1 Serum or plasma total bilirubin measurement (mass/volume) 0.3 mg/dL 0.1-1.0 Serum or plasma alkaline phosphatase measurement (enzymatic activity/volume) 96 U/L 40-136 Serum or plasma aspartate aminotransferase measurement (enzymatic activity/ volume) 19 U/L 5-34 Serum or plasma alanine aminotransferase measurement (enzymatic activity/volume ) 24 U/L 0-55 Serum or plasma protein measurement (mass/volume) 6.7 g/dL 6.4-8.2 Serum or plasma albumin measurement (mass/volume) 3.7 g/dL 3.2-4.5 Serum or plasma creatine kinase measurement (enzymatic activity/volume) - 04/24 19:35 Serum or plasma creatine kinase measurement (enzymatic activity/volume) 199 U/L 29-168 Serum or plasma creatine kinase MB measurement (enzymatic activity/volume) - 19:35 Serum or plasma creatine kinase MB measurement (enzymatic activity/volume) 2.6 ng/mL <6.6 Serum or plasma troponin i.cardiac measurement (mass/volume) - 04/24/16 19:35 Serum or plasma troponin i.cardiac measurement (mass/volume) < ng/ mL <0.30 Serum or plasma amylase measurement (enzymatic activity/volume) - 04/24/16 19: 35 Serum or plasma amylase measurement (enzymatic activity/volume) 23 U /L 25-125 Lipase - 04/24/16 19:35 Lipase 18 U/L 8-78 Serum or plasma lithium measurement (moles/volume) - 04/24/16 19:35 BNP level 73.8 pg/mL <100.0 Serum or plasma troponin i.cardiac measurement (mass/volume) - 04/24/16 22:55 Serum or plasma troponin i.cardiac measurement (mass/volume) < ng/ mL <0.30 Complete blood count (CBC) with automated white blood cell (WBC) differential - 04/30/16 08:33 Blood leukocytes automated count (number/volume) 13.5 10*3/uL 4.3-11.0 Blood erythrocytes automated count (number/volume) 5.18 10*6/uL 4.35-5.85 Venous blood hemoglobin measurement (mass/volume) 14.9 g/dL 11.5-16.0 Blood hematocrit (volume fraction) 44 % 35-52 Automated erythrocyte mean corpuscular volume 85 [foz_us] 80-99 Automated erythrocyte mean corpuscular hemoglobin (mass per erythrocyte) 29 pg 25-34 Automated erythrocyte mean corpuscular hemoglobin concentration measurement ( mass/volume) 34 g/dL 32-36 Automated erythrocyte distribution width ratio 13.9 % 10.0-14.5 Automated blood platelet count (count/volume) 252 10*3/uL 130-400 Automated blood platelet mean volume measurement 10.8 [foz_us] 7.4-10.4 Automated blood neutrophils/100 leukocytes 60 % 42-75 Automated blood lymphocytes/100 leukocytes 30 % 12-44 Blood monocytes/100 leukocytes 8 % 0-12 Automated blood eosinophils/100 leukocytes 2 % 0-10 Automated blood basophils/100 leukocytes 0 % 0-10 Blood neutrophils automated count (number/volume) 8.1 10*3 1.8-7.8 Blood lymphocytes automated count (number/volume) 4.1 10*3 1.0-4.0 Blood monocytes automated count (number/volume) 1.0 10*3 0.0-1.0 Automated eosinophil count 0.2 10*3/uL 0.0-0.3 Automated blood basophil count (count/volume) 0.1 10*3/uL 0.0-0.1 Automated blood complete blood count (hemogram) panel - 05/11/16 07:42 Blood leukocytes automated count (number/volume) 15.3 10*3/uL 4.3-11.0 Blood erythrocytes automated count (number/volume) 4.97 10*6/uL 4.35-5.85 Venous blood hemoglobin measurement (mass/volume) 14.7 g/dL 11.5-16.0 Blood hematocrit (volume fraction) 43 % 35-52 Automated erythrocyte mean corpuscular volume 86 [foz_us] 80-99 Automated erythrocyte mean corpuscular hemoglobin (mass per erythrocyte) 30 pg 25-34 Automated erythrocyte mean corpuscular hemoglobin concentration measurement ( mass/volume) 35 g/dL 32-36 Automated erythrocyte distribution width ratio 13.8 % 10.0-14.5 Automated blood platelet count (count/volume) 242 10*3/uL 130-400 Automated blood platelet mean volume measurement 11.2 [foz_us] 7.4-10.4 PT panel in platelet poor plasma by coagulation assay - 05/11/16 07:42 Prothrombin time (PT) in platelet poor plasma by coagulation assay 11.8 s 12.2-14.7 INR in platelet poor plasma or blood by coagulation assay 0.9 0.8-1.4 Activated partial thromboplastin time (aPTT) in platelet poor plasma bycoagulation assay - 05/11/16 07:42 Activated partial thromboplastin time (aPTT) in platelet poor plasma bycoagulation assay 29 s 24-35 Comprehensive metabolic panel - 05/11/16 07:42 Serum or plasma sodium measurement (moles/volume) 139 mmol/L 135-145 Serum or plasma potassium measurement (moles/volume) 4.1 mmol/L 3.6-5.0 Serum or plasma chloride measurement (moles/volume) 109 mmol/L 98-107 Carbon dioxide 18 mmol/L 21-32 Serum or plasma anion gap determination (moles/volume) 12 mmol/L 5-14 Serum or plasma urea nitrogen measurement (mass/volume) 12 mg/dL 7-18 Serum or plasma creatinine measurement (mass/volume) 0.79 mg/dL 0.60-1.30 Serum or plasma urea nitrogen/creatinine mass ratio 15 NRG Serum or plasma creatinine measurement with calculation of estimated glomerular filtration rate > NRG Serum or plasma glucose measurement (mass/volume) 95 mg/dL 70-105 Serum or plasma calcium measurement (mass/volume) 9.5 mg/dL 8.5-10.1 Serum or plasma total bilirubin measurement (mass/volume) 0.1 mg/dL 0.1-1.0 Serum or plasma alkaline phosphatase measurement (enzymatic activity/volume) 111 U/L 40-136 Serum or plasma aspartate aminotransferase measurement (enzymatic activity/ volume) 16 U/L 5-34 Serum or plasma alanine aminotransferase measurement (enzymatic activity/volume ) 21 U/L 0-55 Serum or plasma protein measurement (mass/volume) 6.8 g/dL 6.4-8.2 Serum or plasma albumin measurement (mass/volume) 3.8 g/dL 3.2-4.5 Lipid 1996 panel - 05/11/16 07:42 Serum or plasma triglyceride measurement (mass/volume) 551 mg/dL <150 Serum or plasma cholesterol measurement (mass/volume) 200 mg/dL < 200 Serum or plasma cholesterol in HDL measurement (mass/volume) 33 mg/ dL 40-60 Cholesterol in LDL [mass/volume] in serum or plasma by direct assay 110 mg/dL 1-129 Serum or plasma cholesterol in VLDL measurement (mass/volume) 110 mg /dL 5-40 Methicillin resistant Staphylococcus aureus (MRSA) screening culture - 07:42 Methicillin resistant Staphylococcus aureus (MRSA) screening culture NEG NRG Complete blood count (CBC) with automated white blood cell (WBC) differential - 12/14/17 02:24 Blood leukocytes automated count (number/volume) 12.5 10*3/uL 4.3-11.0 Blood erythrocytes automated count (number/volume) 5.01 10*6/uL 4.35-5.85 Venous blood hemoglobin measurement (mass/volume) 14.1 g/dL 11.5-16.0 Blood hematocrit (volume fraction) 42 % 35-52 Automated erythrocyte mean corpuscular volume 84 [foz_us] 80-99 Automated erythrocyte mean corpuscular hemoglobin (mass per erythrocyte) 28 pg 25-34 Automated erythrocyte mean corpuscular hemoglobin concentration measurement ( mass/volume) 34 g/dL 32-36 Automated erythrocyte distribution width ratio 14.8 % 10.0-14.5 Automated blood platelet count (count/volume) 245 10*3/uL 130-400 Automated blood platelet mean volume measurement 10.6 [foz_us] 7.4-10.4 Automated blood neutrophils/100 leukocytes 53 % 42-75 Automated blood lymphocytes/100 leukocytes 40 % 12-44 Blood monocytes/100 leukocytes 7 % 0-12 Automated blood eosinophils/100 leukocytes 1 % 0-10 Automated blood basophils/100 leukocytes 0 % 0-10 Blood neutrophils automated count (number/volume) 6.6 10*3 1.8-7.8 Blood lymphocytes automated count (number/volume) 5.0 10*3 1.0-4.0 Blood monocytes automated count (number/volume) 0.8 10*3 0.0-1.0 Automated eosinophil count 0.1 10*3/uL 0.0-0.3 Automated blood basophil count (count/volume) 0.0 10*3/uL 0.0-0.1 PT panel in platelet poor plasma by coagulation assay - 12/14/17 02:24 Prothrombin time (PT) in platelet poor plasma by coagulation assay 13.7 s 12.2-14.7 INR in platelet poor plasma or blood by coagulation assay 1.0 0.8-1.4 Activated partial thromboplastin time (aPTT) in platelet poor plasma bycoagulation assay - 12/14/17 02:24 Activated partial thromboplastin time (aPTT) in platelet poor plasma bycoagulation assay 31 s 24-35 Comprehensive metabolic panel - 12/14/17 02:24 Serum or plasma sodium measurement (moles/volume) 138 mmol/L 135-145 Serum or plasma potassium measurement (moles/volume) 3.3 mmol/L 3.6-5.0 Serum or plasma chloride measurement (moles/volume) 107 mmol/L 98-107 Carbon dioxide 18 mmol/L 21-32 Serum or plasma anion gap determination (moles/volume) 13 mmol/L 5-14 Serum or plasma urea nitrogen measurement (mass/volume) 7 mg/dL 7-18 Serum or plasma creatinine measurement (mass/volume) 0.82 mg/dL 0.60-1.30 Serum or plasma urea nitrogen/creatinine mass ratio 9 NRG Serum or plasma creatinine measurement with calculation of estimated glomerular filtration rate > NRG Serum or plasma glucose measurement (mass/volume) 106 mg/dL 70-105 Serum or plasma calcium measurement (mass/volume) 8.7 mg/dL 8.5-10.1 Serum or plasma total bilirubin measurement (mass/volume) 0.8 mg/dL 0.1-1.0 Serum or plasma alkaline phosphatase measurement (enzymatic activity/volume) 87 U/L 40-136 Serum or plasma aspartate aminotransferase measurement (enzymatic activity/ volume) 23 U/L 5-34 Serum or plasma alanine aminotransferase measurement (enzymatic activity/volume ) 20 U/L 0-55 Serum or plasma protein measurement (mass/volume) 6.9 g/dL 6.4-8.2 Serum or plasma albumin measurement (mass/volume) 4.0 g/dL 3.2-4.5 Serum or plasma creatine kinase measurement (enzymatic activity/volume) - 12/14 02:24 Serum or plasma creatine kinase measurement (enzymatic activity/volume) 114 U/L 29-168 Serum or plasma creatine kinase MB measurement (enzymatic activity/volume) - 02:24 Serum or plasma creatine kinase MB measurement (enzymatic activity/volume) 1.8 ng/mL <6.6 Serum or plasma amylase measurement (enzymatic activity/volume) - 12/14/17 02: 24 Serum or plasma amylase measurement (enzymatic activity/volume) 22 U /L 25-125 Serum or plasma troponin i.cardiac measurement (mass/volume) - 12/14/17 02:24 Serum or plasma troponin i.cardiac measurement (mass/volume) < ng/ mL <0.30 Lipase - 12/14/17 02:24 Lipase 10 U/L 8-78 Serum or plasma amylase measurement (enzymatic activity/volume) - 12/14/17 02: 24 Serum or plasma amylase measurement (enzymatic activity/volume) 22 U /L 25-125 Serum or plasma lithium measurement (moles/volume) - 12/14/17 02:24 BNP level 143.4 pg/mL <100.0 Lipase - 12/14/17 02:24 Lipase 10 U/L 8-78 Magnesium - 12/14/17 02:27 Magnesium 2.0 mg/dL 1.8-2.4 Serum or plasma choriogonadotropin ( test) detection - 12/14/17 02:27 Serum or plasma choriogonadotropin ( test) detection NEGATIVE NEGATIVE Complete blood count (CBC) with automated white blood cell (WBC) differential - 12/14/17 08:05 Blood leukocytes automated count (number/volume) 12.1 10*3/uL 4.3-11.0 Blood erythrocytes automated count (number/volume) 4.62 10*6/uL 4.35-5.85 Venous blood hemoglobin measurement (mass/volume) 13.2 g/dL 11.5-16.0 Blood hematocrit (volume fraction) 39 % 35-52 Automated erythrocyte mean corpuscular volume 85 [foz_us] 80-99 Automated erythrocyte mean corpuscular hemoglobin (mass per erythrocyte) 29 pg 25-34 Automated erythrocyte mean corpuscular hemoglobin concentration measurement ( mass/volume) 34 g/dL 32-36 Automated erythrocyte distribution width ratio 14.8 % 10.0-14.5 Automated blood platelet count (count/volume) 232 10*3/uL 130-400 Automated blood platelet mean volume measurement 11.0 [foz_us] 7.4-10.4 Automated blood neutrophils/100 leukocytes 59 % 42-75 Automated blood lymphocytes/100 leukocytes 34 % 12-44 Blood monocytes/100 leukocytes 6 % 0-12 Automated blood eosinophils/100 leukocytes 1 % 0-10 Automated blood basophils/100 leukocytes 0 % 0-10 Blood neutrophils automated count (number/volume) 7.1 10*3 1.8-7.8 Blood lymphocytes automated count (number/volume) 4.1 10*3 1.0-4.0 Blood monocytes automated count (number/volume) 0.7 10*3 0.0-1.0 Automated eosinophil count 0.1 10*3/uL 0.0-0.3 Automated blood basophil count (count/volume) 0.0 10*3/uL 0.0-0.1 Comprehensive metabolic panel - 12/14/17 08:05 Serum or plasma sodium measurement (moles/volume) 139 mmol/L 135-145 Serum or plasma potassium measurement (moles/volume) 3.7 mmol/L 3.6-5.0 Serum or plasma chloride measurement (moles/volume) 109 mmol/L 98-107 Carbon dioxide 21 mmol/L 21-32 Serum or plasma anion gap determination (moles/volume) 9 mmol/L 5-14 Serum or plasma urea nitrogen measurement (mass/volume) 8 mg/dL 7-18 Serum or plasma creatinine measurement (mass/volume) 0.70 mg/dL 0.60-1.30 Serum or plasma urea nitrogen/creatinine mass ratio 11 NRG Serum or plasma creatinine measurement with calculation of estimated glomerular filtration rate > NRG Serum or plasma glucose measurement (mass/volume) 86 mg/dL 70-105 Serum or plasma calcium measurement (mass/volume) 8.4 mg/dL 8.5-10.1 Serum or plasma total bilirubin measurement (mass/volume) 0.6 mg/dL 0.1-1.0 Serum or plasma alkaline phosphatase measurement (enzymatic activity/volume) 76 U/L 40-136 Serum or plasma aspartate aminotransferase measurement (enzymatic activity/ volume) 22 U/L 5-34 Serum or plasma alanine aminotransferase measurement (enzymatic activity/volume ) 20 U/L 0-55 Serum or plasma protein measurement (mass/volume) 5.8 g/dL 6.4-8.2 Serum or plasma albumin measurement (mass/volume) 3.5 g/dL 3.2-4.5 Serum or plasma troponin i.cardiac measurement (mass/volume) - 12/14/17 08:05 Serum or plasma troponin i.cardiac measurement (mass/volume) < ng/ mL <0.30 Myoglobin, serum - 12/14/17 08:05 Myoglobin, serum 46.6 ng/mL 10.0-92.0 THYROID STIMULATING HORMONE - 12/14/17 08:05 THYROID STIMULATING HORMONE 1.50 u[iU]/mL 0.35-4.94 Automated blood complete blood count (hemogram) panel - 12/15/17 03:26 Blood leukocytes automated count (number/volume) 11.7 10*3/uL 4.3-11.0 Blood erythrocytes automated count (number/volume) 4.73 10*6/uL 4.35-5.85 Venous blood hemoglobin measurement (mass/volume) 13.5 g/dL 11.5-16.0 Blood hematocrit (volume fraction) 41 % 35-52 Automated erythrocyte mean corpuscular volume 86 [foz_us] 80-99 Automated erythrocyte mean corpuscular hemoglobin (mass per erythrocyte) 29 pg 25-34 Automated erythrocyte mean corpuscular hemoglobin concentration measurement ( mass/volume) 33 g/dL 32-36 Automated erythrocyte distribution width ratio 14.7 % 10.0-14.5 Automated blood platelet count (count/volume) 216 10*3/uL 130-400 Automated blood platelet mean volume measurement 11.8 [foz_us] 7.4-10.4 Whole blood basic metabolic panel - 12/15/17 03:26 Serum or plasma sodium measurement (moles/volume) 139 mmol/L 135-145 Serum or plasma potassium measurement (moles/volume) 4.2 mmol/L 3.6-5.0 Serum or plasma chloride measurement (moles/volume) 108 mmol/L 98-107 Carbon dioxide 22 mmol/L 21-32 Serum or plasma anion gap determination (moles/volume) 9 mmol/L 5-14 Serum or plasma urea nitrogen measurement (mass/volume) 12 mg/dL 7-18 Serum or plasma creatinine measurement (mass/volume) 0.72 mg/dL 0.60-1.30 Serum or plasma urea nitrogen/creatinine mass ratio 17 NRG Serum or plasma creatinine measurement with calculation of estimated glomerular filtration rate > NRG Serum or plasma glucose measurement (mass/volume) 91 mg/dL 70-105 Serum or plasma calcium measurement (mass/volume) 8.7 mg/dL 8.5-10.1 Lipid 1996 panel - 12/15/17 03:26 Serum or plasma triglyceride measurement (mass/volume) 165 mg/dL <150 Serum or plasma cholesterol measurement (mass/volume) 166 mg/dL < 200 Serum or plasma cholesterol in HDL measurement (mass/volume) 40 mg/ dL 40-60 Cholesterol in LDL [mass/volume] in serum or plasma by direct assay 109 mg/dL 1-129 Serum or plasma cholesterol in VLDL measurement (mass/volume) 33 mg/ dL 5-40 Methicillin resistant Staphylococcus aureus (MRSA) screening culture - 20:20 Methicillin resistant Staphylococcus aureus (MRSA) screening culture NEG NRG Complete blood count (CBC) with automated white blood cell (WBC) differential - 01/15/18 18:15 Blood leukocytes automated count (number/volume) 13.0 10*3/uL 4.3-11.0 Blood erythrocytes automated count (number/volume) 4.97 10*6/uL 4.35-5.85 Venous blood hemoglobin measurement (mass/volume) 14.3 g/dL 11.5-16.0 Blood hematocrit (volume fraction) 43 % 35-52 Automated erythrocyte mean corpuscular volume 86 [foz_us] 80-99 Automated erythrocyte mean corpuscular hemoglobin (mass per erythrocyte) 29 pg 25-34 Automated erythrocyte mean corpuscular hemoglobin concentration measurement ( mass/volume) 34 g/dL 32-36 Automated erythrocyte distribution width ratio 15.5 % 10.0-14.5 Automated blood platelet count (count/volume) 241 10*3/uL 130-400 Automated blood platelet mean volume measurement 11.2 [foz_us] 7.4-10.4 Automated blood neutrophils/100 leukocytes 73 % 42-75 Automated blood lymphocytes/100 leukocytes 21 % 12-44 Blood monocytes/100 leukocytes 5 % 0-12 Automated blood eosinophils/100 leukocytes 1 % 0-10 Automated blood basophils/100 leukocytes 0 % 0-10 Blood neutrophils automated count (number/volume) 9.4 10*3 1.8-7.8 Blood lymphocytes automated count (number/volume) 2.8 10*3 1.0-4.0 Blood monocytes automated count (number/volume) 0.7 10*3 0.0-1.0 Automated eosinophil count 0.1 10*3/uL 0.0-0.3 Automated blood basophil count (count/volume) 0.0 10*3/uL 0.0-0.1 PT panel in platelet poor plasma by coagulation assay - 01/15/18 18:15 Prothrombin time (PT) in platelet poor plasma by coagulation assay 13.0 s 12.2-14.7 INR in platelet poor plasma or blood by coagulation assay 1.0 0.8-1.4 Activated partial thromboplastin time (aPTT) in platelet poor plasma bycoagulation assay - 01/15/18 18:15 Activated partial thromboplastin time (aPTT) in platelet poor plasma bycoagulation assay 27 s 24-35 Comprehensive metabolic panel - 01/15/18 18:15 Serum or plasma sodium measurement (moles/volume) 140 mmol/L 135-145 Serum or plasma potassium measurement (moles/volume) 3.8 mmol/L 3.6-5.0 Serum or plasma chloride measurement (moles/volume) 108 mmol/L 98-107 Carbon dioxide 20 mmol/L 21-32 Serum or plasma anion gap determination (moles/volume) 12 mmol/L 5-14 Serum or plasma urea nitrogen measurement (mass/volume) 10 mg/dL 7-18 Serum or plasma creatinine measurement (mass/volume) 0.80 mg/dL 0.60-1.30 Serum or plasma urea nitrogen/creatinine mass ratio 13 NRG Serum or plasma creatinine measurement with calculation of estimated glomerular filtration rate > NRG Serum or plasma glucose measurement (mass/volume) 92 mg/dL 70-105 Serum or plasma calcium measurement (mass/volume) 9.3 mg/dL 8.5-10.1 Serum or plasma total bilirubin measurement (mass/volume) 0.3 mg/dL 0.1-1.0 Serum or plasma alkaline phosphatase measurement (enzymatic activity/volume) 99 U/L 40-136 Serum or plasma aspartate aminotransferase measurement (enzymatic activity/ volume) 16 U/L 5-34 Serum or plasma alanine aminotransferase measurement (enzymatic activity/volume ) 17 U/L 0-55 Serum or plasma protein measurement (mass/volume) 7.2 g/dL 6.4-8.2 Serum or plasma albumin measurement (mass/volume) 4.1 g/dL 3.2-4.5 Magnesium - 01/15/18 18:15 Magnesium 2.1 mg/dL 1.8-2.4 Serum or plasma troponin i.cardiac measurement (mass/volume) - 01/15/18 18:15 Serum or plasma troponin i.cardiac measurement (mass/volume) < ng/ mL <0.30 Serum or plasma lithium measurement (moles/volume) - 01/15/18 18:15 BNP level 40.6 pg/mL <100.0 Myoglobin, serum - 01/15/18 18:15 Myoglobin, serum 45.8 ng/mL 10.0-92.0 Automated blood complete blood count (hemogram) panel - 03/04/18 15:36 Blood leukocytes automated count (number/volume) 12.4 10*3/uL 4.3-11.0 Blood erythrocytes automated count (number/volume) 4.87 10*6/uL 4.35-5.85 Venous blood hemoglobin measurement (mass/volume) 14.1 g/dL 11.5-16.0 Blood hematocrit (volume fraction) 42 % 35-52 Automated erythrocyte mean corpuscular volume 86 [foz_us] 80-99 Automated erythrocyte mean corpuscular hemoglobin (mass per erythrocyte) 29 pg 25-34 Automated erythrocyte mean corpuscular hemoglobin concentration measurement ( mass/volume) 34 g/dL 32-36 Automated erythrocyte distribution width ratio 14.5 % 10.0-14.5 Automated blood platelet count (count/volume) 243 10*3/uL 130-400 Automated blood platelet mean volume measurement 10.7 [foz_us] 7.4-10.4 Whole blood basic metabolic panel - 03/04/18 15:36 Serum or plasma sodium measurement (moles/volume) 139 mmol/L 135-145 Serum or plasma potassium measurement (moles/volume) 4.0 mmol/L 3.6-5.0 Serum or plasma chloride measurement (moles/volume) 108 mmol/L 98-107 Carbon dioxide 25 mmol/L 21-32 Serum or plasma anion gap determination (moles/volume) 6 mmol/L 5-14 Serum or plasma urea nitrogen measurement (mass/volume) 7 mg/dL 7-18 Serum or plasma creatinine measurement (mass/volume) 0.76 mg/dL 0.60-1.30 Serum or plasma urea nitrogen/creatinine mass ratio 9 NRG Serum or plasma creatinine measurement with calculation of estimated glomerular filtration rate > NRG Serum or plasma glucose measurement (mass/volume) 88 mg/dL 70-105 Serum or plasma calcium measurement (mass/volume) 9.0 mg/dL 8.5-10.1 Magnesium - 03/04/18 15:36 Magnesium 2.1 mg/dL 1.8-2.4 Complete blood count (CBC) with automated white blood cell (WBC) differential - 08/04/18 12:33 Blood leukocytes automated count (number/volume) 11.5 10*3/uL 4.3-11.0 Blood erythrocytes automated count (number/volume) 4.64 10*6/uL 4.35-5.85 Venous blood hemoglobin measurement (mass/volume) 13.4 g/dL 11.5-16.0 Blood hematocrit (volume fraction) 40 % 35-52 Automated erythrocyte mean corpuscular volume 86 [foz_us] 80-99 Automated erythrocyte mean corpuscular hemoglobin (mass per erythrocyte) 29 pg 25-34 Automated erythrocyte mean corpuscular hemoglobin concentration measurement ( mass/volume) 34 g/dL 32-36 Automated erythrocyte distribution width ratio 14.3 % 10.0-14.5 Automated blood platelet count (count/volume) 247 10*3/uL 130-400 Automated blood platelet mean volume measurement 11.0 [foz_us] 7.4-10.4 Automated blood neutrophils/100 leukocytes 59 % 42-75 Automated blood lymphocytes/100 leukocytes 34 % 12-44 Blood monocytes/100 leukocytes 5 % 0-12 Automated blood eosinophils/100 leukocytes 2 % 0-10 Automated blood basophils/100 leukocytes 0 % 0-10 Blood neutrophils automated count (number/volume) 6.8 10*3 1.8-7.8 Blood lymphocytes automated count (number/volume) 3.9 10*3 1.0-4.0 Blood monocytes automated count (number/volume) 0.6 10*3 0.0-1.0 Automated eosinophil count 0.2 10*3/uL 0.0-0.3 Automated blood basophil count (count/volume) 0.0 10*3/uL 0.0-0.1 PT panel in platelet poor plasma by coagulation assay - 08/04/18 12:33 Prothrombin time (PT) in platelet poor plasma by coagulation assay 12.3 s 12.2-14.7 INR in platelet poor plasma or blood by coagulation assay 0.9 0.8-1.4 Activated partial thromboplastin time (aPTT) in platelet poor plasma bycoagulation assay - 08/04/18 12:33 Activated partial thromboplastin time (aPTT) in platelet poor plasma bycoagulation assay 32 s 24-35 Comprehensive metabolic panel - 08/04/18 12:33 Serum or plasma sodium measurement (moles/volume) 139 mmol/L 135-145 Serum or plasma potassium measurement (moles/volume) 3.7 mmol/L 3.6-5.0 Serum or plasma chloride measurement (moles/volume) 109 mmol/L 98-107 Carbon dioxide 21 mmol/L 21-32 Serum or plasma anion gap determination (moles/volume) 9 mmol/L 5-14 Serum or plasma urea nitrogen measurement (mass/volume) 15 mg/dL 7-18 Serum or plasma creatinine measurement (mass/volume) 0.82 mg/dL 0.60-1.30 Serum or plasma urea nitrogen/creatinine mass ratio 18 NRG Serum or plasma creatinine measurement with calculation of estimated glomerular filtration rate > NRG Serum or plasma glucose measurement (mass/volume) 102 mg/dL 70-105 Serum or plasma calcium measurement (mass/volume) 8.9 mg/dL 8.5-10.1 Serum or plasma total bilirubin measurement (mass/volume) 0.2 mg/dL 0.1-1.0 Serum or plasma alkaline phosphatase measurement (enzymatic activity/volume) 107 U/L 40-136 Serum or plasma aspartate aminotransferase measurement (enzymatic activity/ volume) 18 U/L 5-34 Serum or plasma alanine aminotransferase measurement (enzymatic activity/volume ) 20 U/L 0-55 Serum or plasma protein measurement (mass/volume) 7.3 g/dL 6.4-8.2 Serum or plasma albumin measurement (mass/volume) 4.1 g/dL 3.2-4.5 CALCIUM CORRECTED 8.8 mg/dL 8.5-10.1 Magnesium - 08/04/18 12:33 Magnesium 2.4 mg/dL 1.8-2.4 Serum or plasma troponin i.cardiac measurement (mass/volume) - 08/04/18 12:33 Serum or plasma troponin i.cardiac measurement (mass/volume) < ng/ mL <0.028 Myoglobin, serum - 08/04/18 12:33 Myoglobin, serum 45.5 ng/mL 10.0-92.0 Encounters ACCT No. Visit Date/Time Discharge Status Pt. Type Provider Facility Loc./Unit Complaint [id number] 09/11/2014 08:50:00 09/11/2014 23:59:59 CLS Outpatient BREN DENISE APRN [id number] 08/08/2014 11:34:00 08/08/2014 23:59:59 CLS Outpatient BREN DENISE APRN [id number] 06/20/2014 13:23:00 06/20/2014 23:59:59 CLS Outpatient ARELI KILGORE APRN [id number] 04/16/2014 15:31:00 04/16/2014 23:59:59 CLS Outpatient BREN DENISE APRN [id number] 04/11/2014 11:59:00 04/11/2014 23:59:59 CLS Outpatient ARELI KILGORE APRN [id number] 12/19/2013 15:02:00 12/19/2013 23:59:59 CLS Outpatient BREN DENISE APRN [id number] 11/09/2013 09:57:00 11/09/2013 23:59:59 CLS Outpatient BREN DENISE APRN [id number] 10/29/2013 10:54:00 10/29/2013 23:59:59 CLS Outpatient MELISSA NAVA APRN [id number] 05/30/2013 14:09:00 05/30/2013 23:59:59 CLS Outpatient ARELI KILGORE APRN [id number] 08/25/2012 13:51:00 08/25/2012 23:59:59 CLS Outpatient MARTINEZ WOODRUFF MD 596 08/25/2012 15:24:35 RECURRING [id number] 08/04/2018 11:47:00 08/04/2018 13:33:00 DIS Emergency JYOTI CROOKS MD [facility] ER LEFT SHOULDER/UNDER ARM PAIN [id number] 06/20/2018 16:23:00 06/20/2018 17:38:00 DIS Emergency PATRIZIA LEHMAN [facility] ER HEADACHE X2 DAYS, BLOOD PRESSURE 150/98, COUGH [id number] 02/28/2018 11:57:00 02/28/2018 23:59:59 CLS Outpatient NGOZI ABERNATHY [facility] CARD DILATED CARDIOMYOPATHY [id number] 02/15/2018 23:37:00 02/16/2018 00:06:00 DIS Outpatient SPRING GARCÍA MD [facility] ER KNOT ON RT WRIST [id number] 01/15/2018 17:49:00 01/15/2018 19:18:00 DIS Emergency SPRING GARCÍA MD [facility] ER RAPID HR/SHAKY [id number] 01/03/2018 08:34:00 01/03/2018 23:59:59 CLS Outpatient ABDIRIZAK SOUZA FACCJONATHAN FACP CCDS [facility] LAB I47.2 I42.0 [id number] 12/14/2017 04:24:00 12/16/2017 07:39:00 DIS Inpatient CAMILO FLYNN DO [facility] 4TH CHEST PAIN [id number] 07/02/2017 09:42:00 07/02/2017 10:45:00 DIS Emergency KALA MIX MD [facility] ER L ARM PAIN AFTER FALL [id number] 06/11/2017 07:21:00 06/11/2017 08:42:00 DIS Emergency KALA MIX MD [facility] ER L SHOULDER PAIN, FALL [id number] 09/13/2016 13:09:00 09/13/2016 23:59:59 CLS Outpatient GEORGES GRAVES APRN [facility] RAD SOB,BRONCHITIS, SLEEP APNEA [id number] 07/21/2016 20:03:00 07/22/2016 06:40:00 DIS Outpatient ANN RIVERA DO [facility] SLEEP OBSERVED APNEAS,SNORING ,CHOKING/GASPING [id number] 07/18/2016 17:04:00 07/18/2016 19:29:00 DIS Emergency SHAKEEL MOSELEY [facility] ER RIGHT ARM INJ [id number] 06/18/2016 15:04:00 06/18/2016 23:59:59 CLS Outpatient ANN RIVERA DO [facility] RT TOBACCO USER,OBESITY [id number] 06/01/2016 08:51:00 06/01/2016 23:59:59 CLS Outpatient ABDIRIZAK SOUZA FACC, ALI FACP CCDS [facility] LAB PALPITATIONS, I42.0,E78.1 [id number] 05/19/2016 11:11:00 05/19/2016 23:59:59 CLS Outpatient ABDIRIZAK SOUZA FACC, ALI FACP CCDS [facility] CARD PALPITATIONS, DILATED CARDIOMYOPATHY [id number] 05/11/2016 07:17:00 05/11/2016 13:15:00 DIS Outpatient ABDIRIZAK SOUZA FACC, ALI FACP CCDS [facility] CATH CHEST DISCOMFORT,SOB,CARDIOMYOPATHY [id number] 05/04/2016 08:42:00 05/04/2016 23:59:59 CLS Outpatient ABDIRIZAK SOUZA FACC, ALI FACP CCDS [facility] CARD CHEST DISCOMFORT,SOB,TOBACCO USER [id number] 04/30/2016 12:13:00 04/30/2016 23:59:59 CLS Outpatient ABDIRIZAK SOUZA FACC, ALI FACP CCDS [facility] CARD CHEST DISCOMFORT,SOB,TOBACCO USER [id number] 04/30/2016 08:16:00 04/30/2016 23:59:59 CLS Outpatient CAMILO FLYNN DO [facility] LAB LEUKOCYTOPENIA [id number] 04/26/2016 12:54:00 04/26/2016 23:59:59 CLS Outpatient ABDIRIZAK SOUZA FACC, JONATHAN CARLIN CCDS [facility] LAB CHEST DISCOMFORT,SOB,SUSPECTED SLEEP APNEA [id number] 04/24/2016 19:24:00 04/24/2016 23:47:00 DIS Emergency ANTONIO WATKINS DO [facility] ER CHEST PAIN, SOA [id number] 01/18/2015 11:08:00 01/18/2015 13:03:00 DIS Emergency SHAKEEL MOSELEY [facility] ER R HIP PAIN [id number] 03/25/2014 08:24:00 03/25/2014 10:38:00 DIS Emergency ANTONIO WATKINS DO [facility] ER CHEST PAIN [id number] 06/11/2013 19:08:00 06/11/2013 23:59:59 CLS Outpatient [id number] 03/04/2018 15:42:00 Document Registration [id number] 05/11/2015 12:22:00 Document Registration [id number] 01/18/2015 11:09:34 ACT Document Registration [id number] 06/24/2017 14:00:00 06/24/2017 23:59:59 CLS Out[facility]
[2018-08-11 19:16] LABS: BILIRUBIN,URINE NEGATIVE (NEGATIVE); CLARITY,URINE CLEAR; COLOR,URINE AMBER; GLUCOSE, URINE (UA) NEGATIVE (NEGATIVE); KETONES,URINE NEGATIVE (NEGATIVE); LEUKOCYTE ESTERASE ,URINE 1+ (NEGATIVE); NITRITE,URINE NEGATIVE (NEGATIVE); PH,URINE 7 (5-9); PROTEIN,URINE NEGATIVE (NEGATIVE); UROBILINOGEN,URINE 12 MG/DL (NORMAL)
[2018-08-11] MEDS ORDERED: ONDANSETRON 4 MG (ZOFRAN) ORAL DISSOLVE TAB SL STA (19:48)
--- NOTE | 2018-08-11 19:53 | ED Abdominal Pain ---
General Chief Complaint: Abdominal/GI Problems Stated Complaint: ABD PAIN Nursing Triage Note: C/O nausea, vomiting and diarrhea since 0500 today. States that everyone at work has it. No fever. Epigastric burning noted Sepsis Screen: No Definite Risk History of Present Illness Date Seen by Provider: Aug 11, 2018 Time Seen by Provider: 19:45 Initial Comments 42-year-old female presents for nausea vomiting and diarrhea. Symptoms began at 0500 today. She reports 2 episodes of diarrhea and 2 episodes of vomiting. She has been taking Naus-EZ and antidiarrheal medication. She is continuing to have cramping in the right upper quadrant. She has a history of laparoscopic cholecystectomy in the past. She reports significant nausea after eating or drinking. Timing/Duration: 12-24 Hours Severity/Quality: Mild Location: Generalized Abdomen Radiation: No Radiation Associated Symptoms: Nausea/Vomiting, Weakness Allergies and Home Medications Allergies Coded Allergies: No Known Drug Allergies (Unverified , 08/11/18) Home Medications Acetaminophen 500 Mg Tablet, 1,000 MG PO Q6H PRN for PAIN-MILD, (Reported) Alprazolam 0.25 Mg Tablet, 0.25 MG PO TID PRN for ANXIETY, (Reported) Aspirin 81 Mg Tab.chew, 81 MG PO DAILY Prescribed by: NGOZI ABERNATHY on 12/15/17926 Metoprolol Succinate 100 Mg Tab.er.24h, 100 MG PO DAILY Prescribed by: NGOZI ABERNATHY on 12/15/17926 Naproxen 500 Mg Tablet, 500 MG PO BID Prescribed by: SPRING GARCÍA on 02/15/18 7302 Omeprazole 20 Mg Capsule.dr, 20 MG PO DAILY PRN for HEARTBURN, (Reported) Valsartan 80 Mg Tablet, 80 MG PO HS Prescribed by: NGOZI ABERNATHY on 12/15/17926 Patient Home Medication List Home Medication List Reviewed: Yes Review of Systems Review of Systems Constitutional: no symptoms reported, see HPI Gastrointestinal: See HPI, Abdominal Pain, Diarrhea, Nausea, Poor Appetite, Vomiting Past Wutygcf-Fkcaba-Wsvbvn Hx Past Med/Social Hx: Reviewed Nursing Past Med/Soc Hx Patient Social History Alcohol Use: Denies Use Recreational Drug Use: No Type Used: Cigarettes 2nd Hand Smoke Exposure: Yes Recent Foreign Travel: No Contact w/Someone Who Travel: No Recent Infectious Disease Expo: No Recent Hopitalizations: No Physical Abuse: No Sexual Abuse: No Mistreated: No Fear: No Immunizations Up To Date Tetanus Booster (TDap): Unknown Seasonal Allergies Seasonal Allergies: No Past Medical History Surgeries: Yes (Partial hysterectomy, right eye removal) Cardiac, Eye Surgery, Gallbladder, Hysterectomy Respiratory: Yes Sleep Apnea Currently Using CPAP: Yes Currently Using BIPAP: No Cardiac: Yes Hypertension Neurological: Yes Reproductive Disorders: 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 Genitourinary: Yes (Bladder sling surgery) Gastrointestinal: Yes Gastroesophageal Reflux, Hiatal Hernia Musculoskeletal: Yes Fractures Endocrine: No 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 8.0oz. 100.075637oq; 35.9 BMI Method:Stated General Appearance: WD/WN, no apparent distress HEENT: PERRL/EOMI, normal ENT inspection, TMs normal, pharynx normal, other ( oral mucosa pink and moist) Neck: non-tender, full range of motion, supple, normal inspection Respiratory: chest non-tender, lungs clear, normal breath sounds Cardiovascular: normal peripheral pulses, regular rate, rhythm Gastrointestinal: normal bowel sounds, soft, no pulsatile mass, distended; No guarding, No rebound; tenderness (generalized, most pain in the right upper quadrant); No hepatomegaly, No spleenomegaly Extremities: normal range of motion, non-tender, normal inspection, normal capillary refill, other (skin turgor less than 2 seconds) Back: normal inspection, no CVA tenderness, no vertebral tenderness Neurologic/Psychiatric: no motor/sensory deficits, alert, normal mood/affect, oriented x 3 Skin: normal color, warm/dry Progress/Results/Core Measures Results/Orders Lab Results Laboratory Tests Test 08/11/18 19:00 Range/Units Urine Color KISHAN H Urine Clarity CLEAR Urine pH 7 5-9 Urine Specific [place] 1.010 L 1.016-1.022 Urine Protein NEGATIVE NEGATIVE Urine Glucose (UA) NEGATIVE NEGATIVE Urine Ketones NEGATIVE NEGATIVE Urine Nitrite NEGATIVE NEGATIVE Urine Bilirubin NEGATIVE NEGATIVE Urine Urobilinogen 12 H NORMAL MG/DL Urine Leukocyte Esterase 1+ H NEGATIVE Urine RBC (Auto) NEGATIVE NEGATIVE Urine RBC NONE /HPF Urine WBC 2-5 /HPF Urine Squamous Epithelial Cells 2-5 /HPF Urine Crystals NONE /LPF Urine Bacteria NONE /HPF Urine Casts NONE /LPF Urine Mucus SMALL H /LPF Urine Culture Indicated NO My Orders Orders - EVIN NATARAJAN Ua Culture If Indicated (08/11/18 19:08) Ondansetron Oral Dissolve Tab (Zofran (08/11/18 19:48) Hyoscyamine Sl Tablet (Levsin Sl Tablet) (08/11/18 20:00) Rx-Hyoscyamine Tab (Rx-Levsin Sl) (08/11/18 21:00) Rx-Ondansetron Po (Rx-Zofran Po) (08/11/18 21:00) Medications Given in ED Current Medications Medications Dose Ordered Sig/Thelma Route Start Time Stop Time Status Last Admin Dose Admin Hyoscyamine Sulfate 0.125 mg ONCE ONCE PO 08/11/18 20:00 08/11/18 20:01 DC 08/11/18 19:59 0.125 MG Hyoscyamine Sulfate 0.125 mg ONCE ONCE PO 08/11/18 21:00 08/11/18 21:01 DC 08/11/18 20:59 0.125 MG Ondansetron HCl 4 mg ONCE ONCE PO 08/11/18 21:00 08/11/18 21:01 DC 08/11/18 20:59 4 MG Vital Signs/I&O 08/11/18 19:28 Temp 98.4 Pulse 102 Resp 16 B/P (MAP) 147/84 (105) Pulse Ox 94 Blood Pressure Mean: 105 Departure Impression Primary Impression: Vomiting and diarrhea Additional Impression: Viral gastroenteritis Disposition: 01 HOME, SELF-CARE Condition: Improved Departure-Patient Inst. Decision time for Depature: 20:45 Referrals: CAMILO FLYNN DO (PCP/Family) Primary Care Physician Patient Instructions: Acute Abdomen (Belly Pain), Adult (DC), Nausea and Vomiting, Adult (DC) Add. Discharge Instructions: Take Imodium antidiarrheal [id number], one dose after each loose stool. Clear liquid diet for the next 8 hours. Then advance to bland diet as tolerated. Takes Zofran every 8 hours as needed for vomiting. Take Hyoscyamine every 6 hours for abdominal cramping. If you becomes febrile, he may take Tylenol 650 mg every 6 hours. Follow-up with your primary care provider in 2-3 days if symptoms are not improving or worsen. Return to emergency department for fever greater than 101 not relieved by Tylenol, increased abdominal pain, or new problems. All discharge instructions reviewed with patient and/or family. Voiced understanding. Work/School Note: Work Release Form Date Seen in the Emergency Department: Aug 11, 2018 Return to Work: Aug 13, 2018 Restrictions: No Restrictions EVIN NATARAJAN Aug 11, 2018 19:53
[2018-08-11] MEDS ORDERED: HYOSCYAMINE 0.125 MG (LEVSIN) TAB PO ONE (20:00)
[2018-08-11] MEDS ORDERED: RX-HYOSCYAMINE 0.125 MG SL (LEVSIN) PPK#6 PO ONE (21:00)
[2018-08-11] MEDS ORDERED: RX-ONDANSETRON 4 MG ODT (ZOFRAN) PPK #4 PO ONE (21:00)
[2018-08-11 21:09] VITALS: BP 136/71
== END 2018-08-11 21:11 | disposition home or self-care (01) ==
LOC: EDUNIT# 18:49 → ER 18:50
DX: A08.4 Viral intestinal infection, unspecified (principal); G47.30 Sleep apnea, unspecified; I10 Essential (primary) hypertension; K21.9 Gastro-esophageal reflux disease without esophagitis; Z82.49 Family history of ischemic heart disease and other diseases of the circulatory system; Z80.49 Family history of malignant neoplasm of other genital organs; Z85.840 Personal history of malignant neoplasm of eye; Z85.41 Personal history of malignant neoplasm of cervix uteri; Z87.19 Personal history of other diseases of the digestive system; Z79.82 Long term (current) use of aspirin; Z90.49 Acquired absence of other specified parts of digestive tract; Z77.22 Contact with and (suspected) exposure to environmental tobacco smoke (acute) (chronic); Z98.890 Other specified postprocedural states; Z90.711 Acquired absence of uterus with remaining cervical stump
CPT/HCPCS: 81000; 99283

== ENCOUNTER → 2018-11-07 | Outpatient (CLI) | payer MEDICAID ==
[~2018-11-07] MED LIST changes: +LOSA100T57 PO; -LOSA100T8 PO
[2018-11-07 16:49] LABS: MEAN PLATELET VOLUME 11.1 FL (7.4-10.4); RED CELL DISTRIBUTION WIDTH 14.6 % (10.0-14.5); WHITE BLOOD COUNT 10.4 10^3/uL (4.3-11.0)
[2018-11-07 17:02] LABS: ALANINE AMINOTRANSFERASE 21 U/L (0-55); ALBUMIN 3.7 GM/DL (3.2-4.5); ALKALINE PHOSPHATASE 103 U/L (40-136); BILIRUBIN,TOTAL 0.2 MG/DL (0.1-1.0); BUN/CREATININE RATIO 13; CARBON DIOXIDE 24 MMOL/L (21-32); CHLORIDE 108 MMOL/L (98-107); CREATININE SERUM 0.96 MG/DL (0.60-1.30); GFR ESTIMATED > 60; GLUCOSE 99 MG/DL (70-105); POTASSIUM 3.7 MMOL/L (3.6-5.0); SODIUM 139 MMOL/L (135-145); TOTAL PROTEIN 6.7 GM/DL (6.4-8.2)
--- NOTE | 2018-11-07 19:36 | Diagnostic Imaging Report ---
EXAMINATION: PA and lateral chest at 04:27 p.m. INDICATION: Shortness of breath. FINDINGS: The heart size is within normal limits and stable when compared to 08/04/2018. The lungs remain clear. There is still no sign of failure, pneumonia, or pleural effusion. The mediastinum is not widened. The osseous structures are intact. The loop recorder device overlying the cardiac silhouette seen previously is again evident. IMPRESSION: There is no evidence for active disease. When compared to the prior study, there has been no significant change. Dictated by: Dictated on workstation # [id number]
== END ==
LOC: RAD 16:03
PROVIDERS: ATTEND Family Medicine
DX: I25.10 Atherosclerotic heart disease of native coronary artery without angina pectoris (principal); R06.02 Shortness of breath
CPT/HCPCS: 36415; 71046; 80053; 83880; 85027

== ENCOUNTER 2019-02-04 21:25 | Emergency (ER) | payer MEDICAID ==
[~2019-02-04] VITALS: Ht 167.6 cm; Wt 117.9 kg
[2019-02-04] MEDS ORDERED: ASPIRIN 81 MG CHEW (CHILDREN'S ASA) ONE (21:40)
[2019-02-04] MEDS ORDERED: ASPIRIN 81 MG CHEW (CHILDREN'S ASA) PO ONE (21:45)
[2019-02-04] MEDS: NITROGLYCERIN 0.4 MG SL TABS BTL 25'S SL PRN ×2 (21:47→21:51)
[2019-02-04 21:48] LABS: BASOPHILS % (AUTO) 0 % (0-10); EOSINOPHILS # (AUTO) 0.2 10^3/uL (0.0-0.3); EOSINOPHILS % (AUTO) 1 % (0-10); HEMATOCRIT 44 % (35-52); HEMOGLOBIN 14.9 G/DL (11.5-16.0); LYMPHOCYTES # (AUTO) 4.2 X 10^3 (1.0-4.0); LYMPHOCYTES % (AUTO) 33 % (12-44); MEAN CORPUSCULAR HEMOGLOBIN 29 PG (25-34); MEAN CORPUSCULAR HGB CONC 34 G/DL (32-36); MEAN CORPUSCULAR VOLUME 84 FL (80-99); MONOCYTES # (AUTO) 0.9 X 10^3 (0.0-1.0); MONOCYTES % (AUTO) 7 % (0-12); NEUTROPHILS # (AUTO) 7.4 X 10^3 (1.8-7.8); NEUTROPHILS % (AUTO) 58 % (42-75); PLATELET COUNT 255 10^3/uL (130-400); RED CELL DISTRIBUTION WIDTH 14.5 % (10.0-14.5); WHITE BLOOD COUNT 12.6 10^3/uL (4.3-11.0)
[2019-02-04 21:54] LABS: PROTHROMBIN TIME PATIENT 13.2 SEC (12.2-14.7)
--- NOTE | 2019-02-04 21:58 | Diagnostic Imaging Report ---
INDICATION: Chest pain. FINDINGS: Frontal view of the chest is unchanged from November 07. A cardiac monitoring device is in place. Heart size and vascularity are normal. The lungs are clear. IMPRESSION: There are no acute findings. Dictated by: Dictated on workstation # [id number]
[2019-02-04 22:03] LABS: ALANINE AMINOTRANSFERASE 32 U/L (0-55); ALBUMIN 3.8 GM/DL (3.2-4.5); ALKALINE PHOSPHATASE 103 U/L (40-136); BILIRUBIN,TOTAL 0.2 MG/DL (0.1-1.0); BUN/CREATININE RATIO 12; CARBON DIOXIDE 22 MMOL/L (21-32); CHLORIDE 106 MMOL/L (98-107); CREATININE SERUM 0.95 MG/DL (0.60-1.30); GFR ESTIMATED > 60; GLUCOSE 122 MG/DL (70-105); MAGNESIUM 2.2 MG/DL (1.8-2.4); POTASSIUM 3.5 MMOL/L (3.6-5.0); SODIUM 139 MMOL/L (135-145)
--- NOTE | 2019-02-05 00:53 | ED Chest Pain ---
General Chief Complaint: Cardiac/General Problems Stated Complaint: SOB, PALPITATIONS Source: patient, old records Exam Limitations: no limitations History of Present Illness Date Seen by Provider: Feb 04, 2019 Time Seen by Provider: 21:33 Initial Comments This 43-year-old woman presents to the emergency room with complaints of chest p ressure that radiates into her left shoulder and left neck region as 03/10. Pain started around 18:30. She was sitting watching TV and eating at the time of onset. She took one aspirin 81 mg prior to arrival. She denies any alleviating or exacerbating factors. She is a smoker and has history of cardiomyopathy, SVT, and heart failure. She has had an ablation procedures performed for SVT. She has had a hysterectomy. Review of her chart notes angiography performed in 2015 demonstrating improved EF and no obstructive coronary artery disease. She was rather hypertensive on initial assessment. Allergies and Home Medications Allergies Coded Allergies: No Known Drug Allergies (Unverified , 08/11/18) Home Medications Acetaminophen 500 Mg Tablet, 1,000 MG PO Q6H PRN for PAIN-MILD, (Reported) Alprazolam 0.25 Mg Tablet, 0.25 MG PO TID PRN for ANXIETY, (Reported) Aspirin 81 Mg Tab.chew, 81 MG PO DAILY Prescribed by: NGOZI ABERNATHY on 12/15/17926 Metoprolol Succinate 100 Mg Tab.er.24h, 100 MG PO DAILY Prescribed by: NGOZI ABERNATHY on 12/15/17926 Naproxen 500 Mg Tablet, 500 MG PO BID Prescribed by: SPRING GARCÍA on 02/15/18 8108 Omeprazole 20 Mg Capsule.dr, 20 MG PO DAILY PRN for HEARTBURN, (Reported) Valsartan 80 Mg Tablet, 80 MG PO HS Prescribed by: NGOZI ABERNATHY on 12/15/17926 Patient Home Medication List Home Medication List Reviewed: Yes Review of Systems Review of Systems Constitutional: no symptoms reported EENTM: No Symptoms Reported Respiratory: No Symptoms Reported Cardiovascular: See HPI Gastrointestinal: No Symptoms Reported Genitourinary: No Symptoms Reported Musculoskeletal: no symptoms reported Skin: no symptoms reported Psychiatric/Neurological: No Symptoms Reported Endocrine: No Symptoms Reported Hematologic/Lymphatic: No Symptoms Reported Past Jwwgjqh-Vegvex-Sugkgc Hx Past Med/Social Hx: Reviewed Nursing Past Med/Soc Hx Patient Social History Type Used: Cigarettes 2nd Hand Smoke Exposure: Yes Recent Foreign Travel: No Contact w/Someone Who Travel: No Recent Hopitalizations: No Immunizations Up To Date Tetanus Booster (TDap): Unknown Seasonal Allergies Seasonal Allergies: No Past Medical History Surgeries: Yes (Partial hysterectomy, right eye removal) Cardiac (ablation), Eye Surgery, Gallbladder, Hysterectomy Respiratory: Yes Sleep Apnea Currently Using CPAP: Yes Currently Using BIPAP: No Cardiac: Yes (ablation for SVT) Cardiomyopathy (with prior history of heart failure), Hypertension Neurological: Yes 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 Genitourinary: Yes (Bladder sling surgery) Gastrointestinal: Yes Gastroesophageal Reflux, Hiatal Hernia Musculoskeletal: Yes Fractures Endocrine: No 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 8.0oz. 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 as Tested Skin: Normal Color, Warm/Dry Progress/Results/Core Measures Results/Orders Lab Results Laboratory Tests Test 02/04/19 21:35 Range/Units White Blood Count 12.6 H 4.3-11.0 10^3/uL Red Blood Count 5.23 4.35-5.85 10^6/uL Hemoglobin 14.9 11.5-16.0 G/DL Hematocrit 44 35-52 % Mean Corpuscular Volume 84 80-99 FL Mean Corpuscular Hemoglobin 29 25-34 PG Mean Corpuscular Hemoglobin Concent 34 32-36 G/DL Red Cell Distribution Width 14.5 10.0-14.5 % Platelet Count 255 130-400 10^3/uL Mean Platelet Volume 11.0 H 7.4-10.4 FL Neutrophils (%) (Auto) 58 42-75 % Lymphocytes (%) (Auto) 33 12-44 % Monocytes (%) (Auto) 7 0-12 % Eosinophils (%) (Auto) 1 0-10 % Basophils (%) (Auto) 0 0-10 % Neutrophils # (Auto) 7.4 1.8-7.8 X 10^3 Lymphocytes # (Auto) 4.2 H 1.0-4.0 X 10^3 Monocytes # (Auto) 0.9 0.0-1.0 X 10^3 Eosinophils # (Auto) 0.2 0.0-0.3 10^3/uL Basophils # (Auto) 0.0 0.0-0.1 10^3/uL Prothrombin Time 13.2 12.2-14.7 SEC INR Comment 1.0 0.8-1.4 Activated Partial Thromboplast Time 29 24-35 SEC Sodium Level 139 135-145 MMOL/L Potassium Level 3.5 L 3.6-5.0 MMOL/L Chloride Level 106 98-107 MMOL/L Carbon Dioxide Level 22 21-32 MMOL/L Anion Gap 11 5-14 MMOL/L Blood Urea Nitrogen 11 7-18 MG/DL Creatinine 0.95 0.60-1.30 MG/DL Estimat Glomerular Filtration Rate > 60 BUN/Creatinine Ratio 12 Glucose Level 122 H 70-105 MG/DL Calcium Level 9.0 8.5-10.1 MG/DL Corrected Calcium 9.2 8.5-10.1 MG/DL Magnesium Level 2.2 1.8-2.4 MG/DL Total Bilirubin 0.2 0.1-1.0 MG/DL Aspartate Amino Transf (AST/SGOT) 24 5-34 U/L Alanine Aminotransferase (ALT/SGPT) 32 0-55 U/L Alkaline Phosphatase 103 40-136 U/L Myoglobin 62.3 10.0-92.0 NG/ML Troponin I < 0.028 <0.028 NG/ML B-Type Natriuretic Peptide 19.3 <100.0 PG/ML Total Protein 7.0 6.4-8.2 GM/DL Albumin 3.8 3.2-4.5 GM/DL My Orders Orders - RANDEE HERNANDEZ MD Cbc With Automated Diff (02/04/19 21:42) Magnesium (02/04/19 21:42) Chest 1 View, Ap/Pa Only (02/04/19 21:42) Ekg Tracing (02/04/19 21:42) Cardiac Profile 1 (02/04/19 21:42) Comprehensive Metabolic Panel (02/04/19 21:42) Myoglobin Serum (02/04/19 21:42) Protime With Inr (02/04/19 21:42) Partial Thromboplastin Time (02/04/19 21:42) O2 (02/04/19 21:42) Monitor-Rhythm Ecg Trace Only (02/04/19 21:42) Ed Iv/Invasive Line Start (02/04/19 21:42) Nitroglycerin 0.4 Mg Btl 25's (Nitrostat (02/04/19 21:45) Aspirin Chewable Tablet (Baby Aspirin Ch (02/04/19 21:45) Aspirin Chewable Tablet (Baby Aspirin Ch (02/04/19 21:40) BNP (02/04/19 21:46) Troponin I (02/04/19 23:35) Medications Given in ED Current Medications Medications Dose Ordered Sig/Thelma Route Start Time Stop Time Status Last Admin Dose Admin Aspirin 243 mg ONCE ONCE PO 02/04/19 21:45 02/04/19 21:46 DC 02/04/19 21:45 243 MG Nitroglycerin 0.4 mg UD PRN SL 02/04/19 21:45 02/05/19 01:09 DC 02/04/19 21:51 0.4 MG Vital Signs/I&O 02/04/19 21:32 Pulse Ox 98 O2 Delivery Room Air Progress Progress Note : Progress Note Workup was relatively unremarkable. Patient's chest pain improved with nitroglycerin as did her blood pressure. Repeat troponin was negative. Since patient has had relatively recent cardiac catheterization with no coronary artery disease noted, patient was felt safe to dismiss after the second troponin returned and pain improved. Case was discussed with Dr. Khan prior to discharge. Initial ECG Impression Date: Feb 04, 2019 Initial ECG Impression Time: 21:37 Initial ECG Rate: 91 Initial ECG Rhythm: Normal Sinus Initial ECG Comparisson: Unchanged Comment Sinus rhythm with no ST elevation or depression. Chronic left bundle branch block seen on prior EKG. No axis deviation. Diagnostic Imaging Diagonstic Imaging: Xray Plain Films/CT/US/NM/MRI: chest Comments Chest x-ray viewed by me and report reviewed. See report below: NAME: BELEN VALERA [facility] REC#: [id number] PT STATUS: REG ER : 1975 PHYSICIAN: RANDEE HERNANDEZ MD ADMIT DATE: 02/04/19/ER Signed Date of Exam: 02/04/19 CHEST 1 VIEW, AP/PA ONLY INDICATION: Chest pain. FINDINGS: Frontal view of the chest is unchanged from November 07. A cardiac monitoring device is in place. Heart size and vascularity are normal. The lungs are clear. IMPRESSION: There are no acute findings. Dictated by: Dictated on workstation # [id number] Dict: 02/04/196 Trans: 02/04/192202 Interpreted by: CLAU ROBLERO MD Electronically signed by: CLAU ROBLERO MD 02/04/192202 Departure Impression Primary Impression: Chest pain Qualified Codes: R07.9 - Chest pain, unspecified Additional Impression: Episode of hypertension Disposition: 01 HOME, SELF-CARE Condition: Stable Departure-Patient Inst. Decision time for Depature: 00:40 Referrals: CAMILO FLYNN DO (PCP) Primary Care Physician Patient Instructions: Chest Pain (DC) Add. Discharge Instructions: Continue your medications as previously prescribed. Follow-up with Dr. Khan tomorrow morning. Return to the emergency room if you have worsening symptoms again. All discharge instructions reviewed with patient and/or family. Voiced understanding. Copy Copies To 1: JONATHAN KHAN MD FACP [facility] CCDS Copies To 2: CAMILO FLYNN JOSHUA T MD Feb 05, 2019 00:53
[2019-02-05 01:04] VITALS: BP 114/78
== END 2019-02-05 01:08 | disposition home or self-care (01) ==
LOC: EDUNIT# 21:25 → ER 21:27
DX: I11.0 Hypertensive heart disease with heart failure (principal); I50.9 Heart failure, unspecified; R07.89 Other chest pain; I42.9 Cardiomyopathy, unspecified; G47.30 Sleep apnea, unspecified; K21.9 Gastro-esophageal reflux disease without esophagitis; Z87.19 Personal history of other diseases of the digestive system; Z85.41 Personal history of malignant neoplasm of cervix uteri; Z79.82 Long term (current) use of aspirin; Z90.710 Acquired absence of both cervix and uterus; Z77.22 Contact with and (suspected) exposure to environmental tobacco smoke (acute) (chronic); Z90.711 Acquired absence of uterus with remaining cervical stump; Z82.49 Family history of ischemic heart disease and other diseases of the circulatory system; Z80.8 Family history of malignant neoplasm of other organs or systems
CPT/HCPCS: 36415; 71045; 80053; 83735; 83874; 83880; 84484; 85025; 85610; 85730; 93005; 93041

== ENCOUNTER → 2019-04-06 | Outpatient (CLI) | payer MEDICAID ==
[~2019-04-06] MED LIST changes: -OMEP20CA12 PO; +OMEP20CA13 PO
== END ==
LOC: CARD 12:49
PROVIDERS: ATTEND Internal Medicine Cardiovascular Disease
DX: I34.0 Nonrheumatic mitral (valve) insufficiency (principal); I51.7 Cardiomegaly; I42.0 Dilated cardiomyopathy; I47.1 Supraventricular tachycardia; G47.33 Obstructive sleep apnea (adult) (pediatric); Z72.0 Tobacco use
CPT/HCPCS: 93306

== ENCOUNTER → 2019-04-12 | Outpatient (CLI) | payer MEDICAID ==
[~2019-04-12] MED LIST changes: +HEParin (CENTRAL IV FLUSH) 500 UNIT/5 ML SYR ONE; +ONDA8TAB13 PO; +PROM25SU43 RC
== END ==
LOC: CARD 13:34
PROVIDERS: ATTEND Nurse Practitioner Family
DX: I42.0 Dilated cardiomyopathy (principal)
CPT/HCPCS: 78472

== ENCOUNTER 2019-04-13 08:03 | Emergency (ER) | payer MEDICAID ==
[~2019-04-13] VITALS: Ht 167 cm; Wt 118.0 kg
[~2019-04-13 08:03] MED LIST changes: -HEParin (CENTRAL IV FLUSH) 500 UNIT/5 ML SYR ONE; -ONDA8TAB13 PO; -PROM25SU43 RC
[2019-04-13] MEDS ORDERED: LACTATED RINGERS 1,000 ML IV ONE (08:33)
[2019-04-13 08:41] LABS: BASOPHILS % (AUTO) 0 % (0-10); EOSINOPHILS # (AUTO) 0.2 10^3/uL (0.0-0.3); EOSINOPHILS % (AUTO) 1 % (0-10); HEMATOCRIT 43 % (35-52); HEMOGLOBIN 14.8 G/DL (11.5-16.0); LYMPHOCYTES # (AUTO) 3.5 X 10^3 (1.0-4.0); LYMPHOCYTES % (AUTO) 27 % (12-44); MEAN CORPUSCULAR HEMOGLOBIN 29 PG (25-34); MEAN CORPUSCULAR HGB CONC 34 G/DL (32-36); MEAN CORPUSCULAR VOLUME 85 FL (80-99); MONOCYTES % (AUTO) 7 % (0-12); NEUTROPHILS # (AUTO) 8.3 X 10^3 (1.8-7.8); NEUTROPHILS % (AUTO) 64 % (42-75); PLATELET COUNT 230 10^3/uL (130-400); RED CELL DISTRIBUTION WIDTH 14.4 % (10.0-14.5); WHITE BLOOD COUNT 12.9 10^3/uL (4.3-11.0)
[2019-04-13] MEDS ORDERED: ONDANSETRON 4 MG/2 ML (SDV) Z0FRAN IVP ONE (08:45)
[2019-04-13 09:09] LABS: ALANINE AMINOTRANSFERASE 29 U/L (0-55); ALBUMIN 3.9 GM/DL (3.2-4.5); ALKALINE PHOSPHATASE 104 U/L (40-136); AMYLASE 29 U/L (25-125); BILIRUBIN,TOTAL 0.2 MG/DL (0.1-1.0); BUN/CREATININE RATIO 13; CALCIUM 9.2 MG/DL (8.5-10.1); CARBON DIOXIDE 19 MMOL/L (21-32); CHLORIDE 106 MMOL/L (98-107); CREATININE SERUM 0.85 MG/DL (0.60-1.30); GFR ESTIMATED > 60; GLUCOSE 98 MG/DL (70-105); LIPASE 29 U/L (8-78); MAGNESIUM 2.1 MG/DL (1.6-2.4); POTASSIUM 4.1 MMOL/L (3.6-5.0); SODIUM 137 MMOL/L (135-145); TOTAL PROTEIN 7.3 GM/DL (6.4-8.2)
[2019-04-13] MEDS ORDERED: CATHETER FLUSH 10 ML SYR IV PRN (09:15)
[2019-04-13] MEDS ORDERED: IOHEXOL 350 MG/ML 100 ML (OMNIPAQUE 350) VIAL IV ONE (09:15)
[2019-04-13] MEDS ORDERED: HOLD METFORMIN - RECEIVED CONTRAST 20 ML VIAL IV SCH (09:15)
[2019-04-13] MEDS ORDERED: NS 100 ML (IVPB) BAG IV ONE (09:15)
[2019-04-13 09:39] LABS: BILIRUBIN,URINE NEGATIVE (NEGATIVE); CLARITY,URINE CLEAR; COLOR,URINE YELLOW; GLUCOSE, URINE (UA) NEGATIVE (NEGATIVE); KETONES,URINE NEGATIVE (NEGATIVE); LEUKOCYTE ESTERASE ,URINE NEGATIVE (NEGATIVE); NITRITE,URINE NEGATIVE (NEGATIVE); PH,URINE 6.5 (5-9); PROTEIN,URINE NEGATIVE (NEGATIVE); UROBILINOGEN,URINE NORMAL (NORMAL)
[2019-04-13 09:49] LABS: BACTERIA,URINE NEGATIVE /HPF; SQUAMOUS EPITHELIAL CELL,UR 0-2 /HPF
--- NOTE | 2019-04-13 09:56 | Diagnostic Imaging Report ---
Indication: Nausea, vomiting, diarrhea as well as headache and abdominal pain. Time of exam: 9:46 AM FIndings: Heart size is normal. The lungs are clear. No free air is detected. There are surgical clips in gallbladder fossa. Bowel gas pattern appears nonobstructed. There is contrast within bilateral renal collecting systems as well as urinary bladder. Impression: No acute abnormality is detected. Dictated by: Dictated on workstation # [id number]
--- NOTE | 2019-04-13 09:57 | Diagnostic Imaging Report ---
PROCEDURE: CT abdomen and pelvis with contrast, rule out appendicitis. TECHNIQUE: Multiple contiguous axial images were obtained through the abdomen and pelvis after the administration of intravenous contrast. INDICATION: Nausea, vomiting and diarrhea as well as headache and abdominal pain for 4 days. Correlation is made with prior CT from 03/25/2014. The lung bases are clear. The liver demonstrates generalized low density consistent with hepatic steatosis. No discrete liver mass is detected. The gallbladder is surgically absent. No biliary ductal dilatation is seen. The pancreas and spleen are unremarkable. There is mild nodularity to the left adrenal gland, stable when compared with prior exam. The kidneys are unremarkable. There is no hydronephrosis. The aorta is nonaneurysmal. The small and large bowel loops are normal caliber. No obstruction is seen. The appendix is visualized in the right lower quadrant and appears unremarkable. There is diverticulosis of the descending and sigmoid colon, however, no evidence of acute diverticulitis. No free fluid or fluid collection is identified. The bladder is unremarkable. The uterus appears to be surgically absent. No definite abdominal or pelvic lymphadenopathy is seen. IMPRESSION: 1. Hepatic steatosis. 2. No evidence of urinary tract obstruction. 3. No CT evidence of acute appendicitis. 4. Uncomplicated diverticulosis. Dictated by: Dictated on workstation # [id number]
[2019-04-13] MEDS ORDERED: ONDA8TAB13 PO (10:14)
--- NOTE | 2019-04-13 10:14 | ED GI ---
General Chief Complaint: Abdominal/GI Problems Stated Complaint: N/V/D Nursing Triage Note: PT STATES [place] WITH A HEADACHE SINCE TUESDAY. Sepsis Screen: No Definite Risk Allergies and Home Medications Allergies Coded Allergies: No Known Drug Allergies (Unverified , 08/11/18) Home Medications Acetaminophen 500 Mg Tablet, 1,000 MG PO Q6H PRN for PAIN-MILD, (Reported) Alprazolam 0.25 Mg Tablet, 0.25 MG PO TID PRN for ANXIETY, (Reported) Aspirin 81 Mg Tab.chew, 81 MG PO DAILY Prescribed by: NGOZI ABERNATHY on 12/15/17926 Metoprolol Succinate 100 Mg Tab.er.24h, 100 MG PO DAILY Prescribed by: NGOZI ABERNATHY on 12/15/17926 Naproxen 500 Mg Tablet, 500 MG PO BID Prescribed by: SPRING GARCÍA on 02/15/18 746 Omeprazole 20 Mg Capsule.dr, 20 MG PO DAILY PRN for HEARTBURN, (Reported) Ondansetron 8 Mg Tab.rapdis, 8 MG PO Q6H Prescribed by: ANTONIO WATKINS on 04/13/19 1014 Valsartan 80 Mg Tablet, 80 MG PO HS Prescribed by: NGOZI ABERNATHY on 12/15/17926 Past Kwqmltt-Osodgj-Fasgas Hx Patient Social History Alcohol Use: Denies Use Recreational Drug Use: No Smoking Status: Current Everyday Smoker Type Used: Cigarettes 2nd Hand Smoke Exposure: Yes Recent Foreign Travel: No Contact w/Someone Who Travel: No Recent Infectious Disease Expo: No Recent Hopitalizations: No Physical Abuse: No Sexual Abuse: No Mistreated: No Fear: No Immunizations Up To Date Tetanus Booster (TDap): Unknown Seasonal Allergies Seasonal Allergies: No Past Medical History Surgeries: Yes (Partial hysterectomy, right eye removal) Cardiac, Eye Surgery, Gallbladder, Hysterectomy Respiratory: Yes Sleep Apnea Currently Using CPAP: Yes Currently Using BIPAP: No Cardiac: Yes (ablation for SVT) Cardiomyopathy, Hypertension Neurological: Yes Reproductive Disorders: 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) [employer]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 Genitourinary: Yes (Bladder sling surgery) Gastrointestinal: Yes Gastroesophageal Reflux, Hiatal Hernia Musculoskeletal: Yes Fractures Endocrine: No 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) Loss of Vision: Right Hearing Impairment: Denies 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 8.0oz. 117.239042iu; 42.00 BMI Method:Stated Progress/Results/Core Measures Results/Orders Lab Results Laboratory Tests Test 04/13/19 08:30 04/13/19 09:22 Range/Units White Blood Count 12.9 H 4.3-11.0 10^3/uL Red Blood Count 5.08 4.35-5.85 10^6/uL Hemoglobin 14.8 11.5-16.0 G/DL Hematocrit 43 35-52 % Mean Corpuscular Volume 85 80-99 FL Mean Corpuscular Hemoglobin 29 25-34 PG Mean Corpuscular Hemoglobin Concent 34 32-36 G/DL Red Cell Distribution Width 14.4 10.0-14.5 % Platelet Count 230 130-400 10^3/uL Mean Platelet Volume 11.0 H 7.4-10.4 FL Neutrophils (%) (Auto) 64 42-75 % Lymphocytes (%) (Auto) 27 12-44 % Monocytes (%) (Auto) 7 0-12 % Eosinophils (%) (Auto) 1 0-10 % Basophils (%) (Auto) 0 0-10 % Neutrophils # (Auto) 8.3 H 1.8-7.8 X 10^3 Lymphocytes # (Auto) 3.5 1.0-4.0 X 10^3 Monocytes # (Auto) 1.0 0.0-1.0 X 10^3 Eosinophils # (Auto) 0.2 0.0-0.3 10^3/uL Basophils # (Auto) 0.0 0.0-0.1 10^3/uL Sodium Level 137 135-145 MMOL/L Potassium Level 4.1 3.6-5.0 MMOL/L Chloride Level 106 98-107 MMOL/L Carbon Dioxide Level 19 L 21-32 MMOL/L Anion Gap 12 5-14 MMOL/L Blood Urea Nitrogen 11 7-18 MG/DL Creatinine 0.85 0.60-1.30 MG/DL Estimat Glomerular Filtration Rate > 60 BUN/Creatinine Ratio 13 Glucose Level 98 70-105 MG/DL Calcium Level 9.2 8.5-10.1 MG/DL Corrected Calcium 9.3 8.5-10.1 MG/DL Magnesium Level 2.1 1.6-2.4 MG/DL Total Bilirubin 0.2 0.1-1.0 MG/DL Aspartate Amino Transf (AST/SGOT) 22 5-34 U/L Alanine Aminotransferase (ALT/SGPT) 29 0-55 U/L Alkaline Phosphatase 104 40-136 U/L Total Protein 7.3 6.4-8.2 GM/DL Albumin 3.9 3.2-4.5 GM/DL Amylase Level 29 25-125 U/L Lipase 29 8-78 U/L Urine Color YELLOW Urine Clarity CLEAR Urine pH 6.5 5-9 Urine Specific [place] 1.010 L 1.016-1.022 Urine Protein NEGATIVE NEGATIVE Urine Glucose (UA) NEGATIVE NEGATIVE Urine Ketones NEGATIVE NEGATIVE Urine Nitrite NEGATIVE NEGATIVE Urine Bilirubin NEGATIVE NEGATIVE Urine Urobilinogen NORMAL NORMAL MG/DL Urine Leukocyte Esterase NEGATIVE NEGATIVE Urine RBC (Auto) NEGATIVE NEGATIVE Urine RBC NONE /HPF Urine WBC NONE /HPF Urine Squamous Epithelial Cells 0-2 /HPF Urine Crystals NONE /LPF Urine Bacteria NEGATIVE /HPF Urine Casts NONE /LPF Urine Mucus NEGATIVE /LPF Urine Culture Indicated NO My Orders Orders - ANTONIO WATKINS DO Urine Bedside (04/13/19 08:33) Ondansetron Injection (Zofran Injectio (04/13/19 08:45) Ed Iv/Invasive Line Start (04/13/19 08:33) Lactated Ringers (Lr 1000 Ml Iv Solution (04/13/19 08:33) Amylase (04/13/19 08:33) Cbc With Automated Diff (04/13/19 08:33) Comprehensive Metabolic Panel (04/13/19 08:33) Lipase (04/13/19 08:33) Magnesium (04/13/19 08:33) Ua Culture If Indicated (04/13/19 08:33) Ct Abd/Pelv W (Appendicitis) (04/13/19 08:41) Acute Abd Series (04/13/19 08:41) Iohexol Injection (Omnipaque 350 Mg/Ml 1 (04/13/19 09:15) Received Contrast (Hold Metformin- Contr (04/13/19 09:15) Sodium Chloride Flush (Catheter Flush Sy (04/13/19 09:15) Ns (Ivpb) (Sodium Chloride 0.9% Ivpb Bag (04/13/19 09:15) Medications Given in ED Current Medications Medications Dose Ordered Sig/Thelma Route Start Time Stop Time Status Last Admin Dose Admin Lactated Ringer's 1,000 ml @ 0 mls/hr Q0M ONCE IV 04/13/19 08:33 04/13/19 08:49 DC 04/13/19 08:55 1,000 MLS/HR Ondansetron HCl 4 mg ONCE ONCE IVP 04/13/19 08:45 04/13/19 08:49 DC 04/13/19 08:55 4 MG Vital Signs/I&O 04/13/19 08:16 Temp 36.1 Pulse 93 Resp 22 B/P (MAP) 144/86 (105) Pulse Ox 97 O2 Delivery Room Air Blood Pressure Mean: 105 Departure Impression Primary Impression: Gastroenteritis Disposition: 01 HOME, SELF-CARE Condition: Improved Departure-Patient Inst. Referrals: CAMILO FLYNN DO (PCP/Family) Primary Care Physician Patient Instructions: [id number] Add. Discharge Instructions: CLEAR LIQUIDS--WATER, BROTH, JELLO, GATORADE TOMORROW IF YOU ARE BETTER, ADD BRATS DIET TO CLEAR LIQUIDS--BANANAS, RICE, APPLESAUCE, TOAST, SALTINES FOLLOW UP WITH YOUR DR IN 2-3 DAYS IF NO BETTER, RETURN TO ER IF WORSE All discharge instructions reviewed with patient and/or family. Voiced understanding. Scripts Promethazine HCl (Phenergan) 25 Mg Supp.rect 25 MG RC Q4H for Nausea/Vomiting, #10 SUPP.RECT Prov: ANTONIO WATKINS DO 04/13/19 Ondansetron (Ondansetron Odt) 8 Mg Tab.rapdis 8 MG PO Q6H for Nausea/Vomiting, #10 TAB Prov: ANTONIO WATKINS DO 04/13/19 ANTONIO WATKINS DO Apr 13, 2019 10:14
[2019-04-13] MEDS ORDERED: PROM25SU43 RC (10:32)
[2019-04-13 10:52] VITALS: BP 142/82
== END 2019-04-13 10:53 | disposition home or self-care (01) ==
LOC: EDUNIT# 08:03 → ER 08:04
DX: K52.9 Noninfective gastroenteritis and colitis, unspecified (principal); G47.30 Sleep apnea, unspecified; I10 Essential (primary) hypertension; I42.9 Cardiomyopathy, unspecified; K21.9 Gastro-esophageal reflux disease without esophagitis; F17.210 Nicotine dependence, cigarettes, uncomplicated; Z85.41 Personal history of malignant neoplasm of cervix uteri; Z79.82 Long term (current) use of aspirin; Z90.710 Acquired absence of both cervix and uterus; Z82.49 Family history of ischemic heart disease and other diseases of the circulatory system; Z80.8 Family history of malignant neoplasm of other organs or systems
CPT/HCPCS: 36415; 74022; 74177; 80053; 81000; 82150; 83690; 83735; 85025

== ENCOUNTER → 2019-05-29 | Outpatient (CLI) | payer MEDICAID ==
[~2019-05-29] VITALS: Ht 167 cm; Wt 123.0 kg
[~2019-05-29] MED LIST changes: +CATHETER FLUSH 10 ML SYR IV PRN; +ONDA8TAB13 PO; +PROM25SU43 RC; +REGADENOSON 0.4 MG/5 ML SYR (LEXISCAN) IV ONE
--- NOTE | 2019-05-29 17:31 | STRESS TEST ---
DATE OF SERVICE: 05/29/2019 RESTING AND POST REGADENOSON TECHNETIUM-99M TETROFOSMIN SPECT CT IMAGING ORDERING PHYSICIAN: Dr. Khan. PRIMARY PHYSICIAN: Jeanmarie Greenberg DO CLINICAL DIAGNOSIS: Dilated cardiomyopathy. Baseline images were carried out after injection of 9.92 mCi of technetium-99m Tetrofosmin. This was followed by 0.4 mg regadenoson and 29.8 mCi of technetium-99m Tetrofosmin for stress imaging. The electrocardiogram showed sinus rhythm with left bundle-branch block. The electrocardiogram did not change significantly with regadenoson infusion. The patient tolerated the procedure well. Review of images at rest and following stress indicates a somewhat patchy tracer uptake. There appears to be transient perfusion defect in the anterolateral wall. Gated images show well preserved global left ventricular systolic function. Left ventricular ejection fraction is calculated to be 51%. Left ventricular end diastolic volume is 131 mL. TID is absent (0.95). CONCLUSIONS: 1. This study suggests a small to moderate amount of anterolateral ischemia. 2. Moderate cardiomegaly. 3. Well preserved global left ventricular systolic function with ejection fraction of 51%. 4. No distinct regional wall motion abnormalities seen on this study. Job ID: [id number] DocumentID: [id number] Dictated Date: 05/29/2019 14:04:43 Roughing Mill Operator Date: 05/29/2019 17:30:47 Dictated By: JONATHAN KHAN MD, MA, FACP, FACC,
== END ==
LOC: CARD 08:01
PROVIDERS: ATTEND Internal Medicine Cardiovascular Disease
DX: I51.7 Cardiomegaly (principal); I42.0 Dilated cardiomyopathy; I47.1 Supraventricular tachycardia; G47.33 Obstructive sleep apnea (adult) (pediatric); I50.22 Chronic systolic (congestive) heart failure; Z72.0 Tobacco use
CPT/HCPCS: 78452; 93017

== ENCOUNTER 2019-06-12 07:07 | Day surgery (SDC) | payer MEDICAID ==
[2019-06-12] VITALS (12 sets, daily range): BP systolic 121–154; BP diastolic 63–82
[~2019-06-12] VITALS: Ht 168 cm; Wt 123.0 kg
[~2019-06-12 07:07] MED LIST changes: -CATHETER FLUSH 10 ML SYR IV PRN; +HEParin (CATH LAB) 2,000 ML IV ONE; +LIDOCAINE 1% INJ 20 ML 20 ML VIAL ONE; +NS IV 1000 ML 1,000 ML ONE; -REGADENOSON 0.4 MG/5 ML SYR (LEXISCAN) IV ONE
[2019-06-12] MEDS ORDERED: NS IV 1000 ML 1,000 ML IV SCH ×2 (07:15→08:59)
[2019-06-12 07:33] LABS: HEMOGLOBIN 13.7 G/DL (11.5-16.0); RED CELL DISTRIBUTION WIDTH 14.4 % (10.0-14.5); WHITE BLOOD COUNT 13.9 10^3/uL (4.3-11.0)
[2019-06-12] MEDS ORDERED: MIDAZOLAM 5 MG/5 ML (VERSED) VIAL ONE (07:54)
[2019-06-12] MEDS ORDERED: fentaNYL INJECTION 100 MCG/2 ML AMP ONE (07:55)
[2019-06-12] MEDS ORDERED: HEParin 1000 UNIT/ML (10ML VIAL) FOR BOLUS ONE (07:55)
[2019-06-12 07:56] LABS: INR 0.9 (0.8-1.4); PROTHROMBIN TIME PATIENT 12.5 SEC (12.2-14.7)
[2019-06-12 08:03] LABS: ALANINE AMINOTRANSFERASE 23 U/L (0-55); ALBUMIN 3.6 GM/DL (3.2-4.5); ALKALINE PHOSPHATASE 113 U/L (40-136); BILIRUBIN,TOTAL 0.2 MG/DL (0.1-1.0); BUN/CREATININE RATIO 13; CALCIUM 8.5 MG/DL (8.5-10.1); CARBON DIOXIDE 20 MMOL/L (21-32); CHLORIDE 109 MMOL/L (98-107); CHOLESTEROL 197 MG/DL (< 200); CREATININE SERUM 0.78 MG/DL (0.60-1.30); GFR ESTIMATED > 60; GLUCOSE 109 MG/DL (70-105); HDL CHOLESTEROL 30 MG/DL (40-60); POTASSIUM 4.1 MMOL/L (3.6-5.0); SODIUM 138 MMOL/L (135-145); TOTAL PROTEIN 6.7 GM/DL (6.4-8.2); TRIGLYCERIDES 620 MG/DL (<150); VLDL CHOLESTEROL 124 MG/DL (5-40)
--- NOTE | 2019-06-12 08:59 | Cardiac Procedure Note-CS/ASA ---
Pre-Procedure Note Pre-Op Procedure Note H&P Reviewed The H&P was reviewed, patient examined and no changes noted. Date H&P Reviewed: Jun 12, 2019 Time H&P Reviewed: 08:40 Conscious Sedation Pre-Proced Time 08:40 ASA Score 3 For ASA 3 and 4: Consider anesthesia and medical clearance. Also, for patients with a history of failed moderate sedation consider anesthesia. Airway Lungs Heart ASA score ASA 1: a normal healthy patient ASA 2: a patient with a mild systemic disease (mid diabetes, controlled hypertension, obesity ASA 3: a patient with a severe systemic disease that limits activity (angina, COPD, prior Myocardial infarction) ASA 4: a patient with an incapacitating disease that is a constant threat to life (CHF, renal failure) ASA 5: a moribund patient not expected to survive 24 hrs. (ruptured aneurysm) ASA 6: a declared brain- patient whose organs are being harvested. For emergent operations, add the letter E after the classification Mallampati Classification Grade 2 Sedation Plan Analgesia, Amnesia, Plan communicated to team members, Discussed options with patient/fam, Discussed risks with patient/fam The patient is an appropriate candidate to undergo the planned procedure, sedation, and anesthesia. The patient immediately re-assessed prior to indication. JONATHAN REVELES MD FACP FAC CCDS Jun 12, 2019 08:59 POS
[2019-06-12] MEDS ORDERED: PATIENT MAY USE OWN MEDS, ALL PO SCH (09:00)
--- NOTE | 2019-06-12 09:09 | Discharge Inst-Cardiology ---
Discharge Inst-Cardiac Discharge Medications Continued Medications: Acetaminophen (Acetaminophen Extra Strength) 500 Mg Tablet 1000 MG PO Q6H PRN for PAIN-MILD, TAB Alprazolam (Alprazolam) 0.25 Mg Tablet 0.25 MG PO TID PRN for ANXIETY, TAB Aspirin (Aspirin) 81 Mg Tab.chew 81 MG PO DAILY, #30 TAB 5 Refills Metoprolol Succinate (Metoprolol Succinate) 100 Mg Tab.er.24h 100 MG PO DAILY, #30 TAB 5 Refills Naproxen (Naprosyn) 500 Mg Tablet 500 MG PO BID, #30 TAB 0 Refills Omeprazole (Omeprazole) 20 Mg Capsule.dr 20 MG PO DAILY PRN for HEARTBURN, CAP Ondansetron (Ondansetron Odt) 8 Mg Tab.rapdis 8 MG PO Q6H for Nausea/Vomiting, #10 TAB Promethazine HCl (Phenergan) 25 Mg Supp.rect 25 MG RC Q4H for Nausea/Vomiting, #10 SUPP.RECT Valsartan (Diovan) 80 Mg Tablet 80 MG PO HS, #30 TAB 5 Refills Orders-Post D/C & Referrals Pneu Vac Indicated: Yes JONATHAN REVELES MD FACP FACC CCDS Jun 12, 2019 09:09 POS
--- NOTE | 2019-06-12 09:10 | Discharge Inst-Post CATH ---
Discharge Inst-CATH/EP Post Cardiac Cath/EP D/C Inst Follow Up/Plan F/u with Dr Khan in 2 weeks F/u with PCP this week for elevated white count ACTIVITY * Go Home directly and rest. * Limit activity of the leg (or wrist if it was used) for 7 days including aerobics, swimming, jogging, bicycling, etc. * Restrict stair-climbing for 7 days if possible, if not, climb up with your non-cath leg, then bring together on the same step. * Avoid lifting, pushing, pulling or excessive movement of the affected extremity for 7 days. * Customary sexual activity may be resumed after 2 days-use caution not to use a position that strains or causes pain to the affected extremity. * No driving for 24 hours. * NO SMOKING. * Avoid straining for bowel movements for 7 days. * Gentle walking on level ground is allowed. * Returning to work will depend on the type of procedure and the results. Your doctor will discuss this with you. CALL YOUR DOCTOR FOR ANY OF THE FOLLOWING: *If bleeding from the puncture site occurs- Apply gentle pressure to site with clean cloth and call your doctor or EMS. * If a knot or lump forms under the skin, increases in size, or causes pain. * If bruising appears to be worsening or moving further down your leg instead of disappearing. * Temperature above 101 F. CARE OF YOUR GROIN INCISION; * Bruising or purple discoloration of the skin near the puncture site is common. * You may shower only, no bathtub bathing for 5 days. Be careful to avoid slipping as your leg may feel stiff. * If a closure device was used on your femoral artery, please see the attached guide regarding care of the device and your leg. * Leave dressing on FOR 24 hours. CARE OF YOUR WRIST INCISION; * Bruising or purple discoloration of the skin near the puncture site is common. * You may shower. * DO NOT submerge wrist. * Leave dressing on FOR 24 hours. JONATHAN KHAN MD FACP FAC CCDS Jun 12, 2019 09:10 POS
[2019-06-12] MEDS ORDERED: SACU1TAB PO (09:16)
[2019-06-12] MEDS ORDERED: FURO20TA4 PO (09:17)
[2019-06-12] MEDS ORDERED: APIX5TAB PO (09:17)
[2019-06-12] MEDS ORDERED: VALS320T15 PO (09:17)
--- NOTE | 2019-06-12 09:18 | NUR ---
Called patients pharmacy Entresto filled 05/17 30 day supply qty 60 Eliquis 05/16/19 30 day supply qty60 Metoprolol filled 06/05/19 not picked up Lasix filled 03/16 90 day supply Alprazolam filled 02/13 qty42 Valsartan 320mg filled 03/09 30qty
--- NOTE | 2019-06-12 09:22 | CARDIAC CATHETERIZATION ---
DATE OF SERVICE: CARDIAC CATHETERIZATION REPORT The patient is a 43-year-old lady with dilated cardiomyopathy who recently had a myocardial perfusion imaging study, which indicated anterolateral ischemia. Cardiac catheterization was recommended. Informed consent was obtained. PROCEDURE: She was brought to the cardiac catheterization laboratory in a fasting state. Right groin was prepared and draped in the usual sterile fashion. Lidocaine 1% for local anesthesia. Modified Seldinger technique was used to advance a 5-Tanz[place] sheath in the right femoral artery, 5-Tanz[place] JL4 catheter for left coronary angiography, 5-T[place] JR4 catheter for right coronary angiography, 5-[place] pigtail catheter was used for left heart catheterization and left ventricular angiography. Angiography of the right femoral artery was carried out through the sheath. Mynx was used to achieve hemostasis. She tolerated the procedure well. HEMODYNAMICS: Left ventricular end-diastolic pressure following coronary angiography was 13 mmHg. There was no significant pressure gradient on pullback across the aortic valve. Ascending aortic pressure was 120/71 with a mean 82 mmHg. LEFT VENTRICULAR ANGIOGRAPHY: Left ventricular angiography was carried out in the right anterior oblique projection. Left ventricular systolic function is mildly to moderately impaired. Left ventricular ejection fraction approximately 45%. There appears to be mild global hypokinesis. CORONARY ANGIOGRAPHY: Left main coronary artery is free of significant disease. Left anterior descending artery is free of significant disease. Left circumflex artery is free of significant disease. Right coronary artery is dominant, free of significant disease. CONCLUSIONS: 1. No angiographically significant coronary artery disease. 2. Mild elevation of left ventricular end-diastolic pressure. 3. Mild impairment of global left ventricular systolic function with mild global hypokinesis and left ventricular ejection fraction approximately 45%. DISCUSSION AND RECOMMENDATIONS: Based on results of the study, it appears appropriate to continue a conservative approach. Risk factor modification has been reviewed. Outpatient followup is advised. Job ID: [id number] DocumentID: [id number] Dictated Date: 06/12/2019 08:54:14 Fingerer Date: 06/12/2019 09:22:01 Dictated By: JONATHAN REVELES MD, MA, FACP, FACC,
== END 2019-06-12 12:28 | disposition home or self-care (01) ==
LOC: CATH 07:07 → SDC 09:13 → CATH 12:28
PROVIDERS: ATTEND Internal Medicine Cardiovascular Disease
DX: I25.9 Chronic ischemic heart disease, unspecified (principal); I42.0 Dilated cardiomyopathy; K21.9 Gastro-esophageal reflux disease without esophagitis; E78.1 Pure hyperglyceridemia; I47.1 Supraventricular tachycardia; G47.33 Obstructive sleep apnea (adult) (pediatric); F17.210 Nicotine dependence, cigarettes, uncomplicated; E66.9 Obesity, unspecified; Z68.41 Body mass index [BMI] 40.0-44.9, adult; Z79.01 Long term (current) use of anticoagulants; Z90.49 Acquired absence of other specified parts of digestive tract; Z90.710 Acquired absence of both cervix and uterus; Z85.840 Personal history of malignant neoplasm of eye; Z85.41 Personal history of malignant neoplasm of cervix uteri; Z80.9 Family history of malignant neoplasm, unspecified; Z83.3 Family history of diabetes mellitus; Z82.49 Family history of ischemic heart disease and other diseases of the circulatory system; Z80.1 Family history of malignant neoplasm of trachea, bronchus and lung
CPT/HCPCS: 36415; 80053; 80061; 85027; 85610; 85730; 87081; 93458

== ENCOUNTER → 2019-06-21 | Outpatient (CLI) | payer MEDICAID ==
[~2019-06-21] MED LIST changes: +APIX5TAB PO; +FURO20TA4 PO; -HEParin (CATH LAB) 2,000 ML IV ONE; -LIDOCAINE 1% INJ 20 ML 20 ML VIAL ONE; -NS IV 1000 ML 1,000 ML ONE; +SACU1TAB PO; +VALS320T15 PO
[2019-06-21 13:34] LABS: BASOPHILS % (AUTO) 0 % (0-10); EOSINOPHILS # (AUTO) 0.2 10^3/uL (0.0-0.3); EOSINOPHILS % (AUTO) 2 % (0-10); HEMATOCRIT 44 % (35-52); HEMOGLOBIN 14.6 G/DL (11.5-16.0); LYMPHOCYTES # (AUTO) 3.9 X 10^3 (1.0-4.0); LYMPHOCYTES % (AUTO) 31 % (12-44); MEAN CORPUSCULAR HEMOGLOBIN 29 PG (25-34); MEAN CORPUSCULAR HGB CONC 33 G/DL (32-36); MEAN CORPUSCULAR VOLUME 86 FL (80-99); MEAN PLATELET VOLUME 10.7 FL (7.4-10.4); MONOCYTES # (AUTO) 0.9 X 10^3 (0.0-1.0); MONOCYTES % (AUTO) 7 % (0-12); NEUTROPHILS # (AUTO) 7.7 X 10^3 (1.8-7.8); NEUTROPHILS % (AUTO) 60 % (42-75); PLATELET COUNT 236 10^3/uL (130-400); RED CELL DISTRIBUTION WIDTH 14.4 % (10.0-14.5); WHITE BLOOD COUNT 12.8 10^3/uL (4.3-11.0)
== END ==
LOC: LAB 13:22
PROVIDERS: ATTEND Family Medicine
DX: D72.829 Elevated white blood cell count, unspecified (principal)
CPT/HCPCS: 36415; 85025